=== PATIENT | male | born 1975 | race Caucasian/White ===

== ENCOUNTER 2021-01-16 07:48 | Day surgery (SDC) | payer BC, SELFPAY ==
[2021-01-10 15:08] VITALS: BMI 31.4
--- NOTE | 2021-01-15 08:59 | HO.ANESPROP2 ---
HPI - Anesthesia Eval Consult details Narrative: 46yo M for Colonoscopy PMFSH Active Problems Active Problems: All Active Problems (Updated 01/10/21 @ 15:11 by Komal Maurice) Annual physical exam (Acute) Constipation (Acute) Rectal bleeding (Acute) Overweight (BMI 25.0-29.9) (Acute) Hypercholesterolemia (Acute) Vitamin D deficiency (Acute) Hypertension (Acute) Past Medical History Medical History Bruise Environmental allergies Fatty liver Hypercholesterolemia Hypertension Overweight (BMI 25.0-29.9) Seasonal allergies Vitamin D deficiency Family History Family History Father No problems noted. Mother No problems noted. Paternal Grandmother Breast cancer Maternal Grandfather Myocardial infarction Sister No problems noted. Surgical History Surgical History H/O wisdom tooth extraction History of left knee surgery Social History Social History Alcohol intake: never Smoking Status: Never smoker Use of substances other than those prescribed or required for medical reasons: No Advance Directives: No Advance Directives Information Provided: No Advance Directives on File: No Meds Allergies Allergy/AdvReac Type Severity Reaction Status Date / Time cephalexin [Keflex] Allergy Intermediate Swelling Verified 01/16/21 08:23 hydrochlorothiazide Allergy Intermediate rash Verified 01/16/21 08:23 egg AdvReac Intermediate Gastrointestinal Verified 01/16/21 08:31 Upset Shellfish AdvReac Intermediate VOMITING Uncoded 01/16/21 08:31 Home Medications Medication Instructions Recorded Confirmed Last Taken Type cholecalciferol (vitamin D3) 250 mcg PO DAILY 01/10/21 01/10/21 Unknown History [Vitamin D3] levocetirizine [Xyzal] 5 mg PO DAILY 01/10/21 01/10/21 Unknown History multivitamin 1 tab PO DAILY 01/10/21 01/10/21 Unknown History Exam Exam Date and Time: January 15, 2021 0859 Height,Weight and Vital Signs: Height 5 ft 10 in Weight 99.337 kg Assessment and Plan Assessment Anesthesia Assessment: Chart Reviewed
[2021-01-16 08:34] VITALS: BP 156/99; PULSE 91; RESP 20; TEMP 36.9; O2SAT 98
[2021-01-16] MEDS: Lactated Ringers 1,000 ML 100 ML IVCONT (08:43)
--- NOTE | 2021-01-16 09:05 | P.CONAN_ITS ---
[facility] Active Problems Active Problems: All Active Problems (Updated 01/10/21 @ 15:11 by Komal mcdonald) Annual physical exam (Acute) Constipation (Acute) Rectal bleeding (Acute) Overweight (BMI 25.0-29.9) (Acute) Hypercholesterolemia (Acute) Vitamin D deficiency (Acute) Hypertension (Acute) Past Medical History Medical History Bruise Environmental allergies Fatty liver Hypercholesterolemia Hypertension Overweight (BMI 25.0-29.9) Seasonal allergies Vitamin D deficiency Family History Family History Father No problems noted. Mother No problems noted. Paternal Grandmother Breast cancer Maternal Grandfather Myocardial infarction Sister No problems noted. Surgical History Surgical History H/O wisdom tooth extraction History of left knee surgery Social History Social History Alcohol intake: never Smoking Status: Never smoker Use of substances other than those prescribed or required for medical reasons: No Advance Directives: No Advance Directives Information Provided: No Advance Directives on File: No Meds Allergies Allergy/AdvReac Type Severity Reaction Status Date / Time cephalexin [Keflex] Allergy Intermediate Swelling Verified 01/16/21 08:23 hydrochlorothiazide Allergy Intermediate rash Verified 01/16/21 08:23 egg AdvReac Intermediate Gastrointestinal Verified 01/16/21 08:31 Upset Shellfish AdvReac Intermediate VOMITING Uncoded 01/16/21 08:31 Active Medications: Current Medications Generic Name Dose Route Start Last Admin Trade Name Otoniel PRN Reason Stop Dose Admin Lactated Ringer's 1,000 mls @ 100 mls/hr 01/16/21 08:30 01/16/21 08:43 Lr IVCONT 100 mls/hr .Q10H MISTI Administration Home Medications Medication Instructions Recorded Confirmed Last Taken Type cholecalciferol (vitamin D3) 250 mcg PO DAILY 01/10/21 01/10/21 Unknown History [Vitamin D3] levocetirizine [Xyzal] 5 mg PO DAILY 01/10/21 01/10/21 Unknown History multivitamin 1 tab PO DAILY 01/10/21 01/10/21 Unknown History Exam Exam Date and Time: January 16, [id number] Height,Weight and Vital Signs: Height 5 ft 10 in Weight 99.337 kg Last Vital Signs Temp 98.4 F 01/16/21 08:34 Pulse 91 01/16/21 08:34 Resp 20 01/16/21 08:34 BP 156/99 H 01/16/21 08:34 Pulse Ox 98 01/16/21 08:34 Airway Mallampati Class: II TM Dist: >3cm Neck ROM: Full
--- NOTE | 2021-01-16 09:27 | MHC.SHP ---
Pre-Procedural Eval Section A The patient is an INPATIENT: No Changes since office visit: No Cold of Flu in the past 2 weeks, No New Medical Problems, No Changes in Medication and No Patient answered all questions The History & Physical has been completed within 30 days and I have reviewed it.: Yes Section B Chief Complaint: rectal bleeding Allergies: Allergies Allergy/AdvReac Type Severity Reaction Status Date / Time cephalexin [Keflex] Allergy Intermediate Swelling Verified 01/16/21 08:23 hydrochlorothiazide Allergy Intermediate rash Verified 01/16/21 08:23 egg AdvReac Intermediate Gastrointestinal Verified 01/16/21 08:31 Upset Shellfish AdvReac Intermediate VOMITING Uncoded 01/16/21 08:31 Plan I have reviewed the history and physical and performed a pertinent physical examination on my patient. No changes have occurred unless specified.
[2021-01-16 10:00] VITALS: BP 120/81; PULSE 99; RESP 14; TEMP 36.4; O2SAT 95
--- NOTE | 2021-01-16 10:04 | PM.OP ---
Brief Operative Note Date of Service: 01/16/21 Pre-op diagnosis: rectal bleeding Post-op diagnosis: same (colon polyp) Procedure: colonoscopy Surgeon: Gregory Lopez Anesthesia: MAC Estimated blood loss (mL): 0 Pathology: other (rectal polyp) Condition: stable Disposition: PACU
[2021-01-16 10:15] VITALS: BP 147/91; PULSE 82; RESP 16; O2SAT 98
--- NOTE | 2021-01-16 10:16 | OP_ITS ---
SURGEON: Gregory Lopez MD INDICATIONS: Rectal bleeding. PREOPERATIVE DIAGNOSIS: POSTOPERATIVE DIAGNOSIS: PROCEDURE PERFORMED: Colonoscopy to the terminal ileum with snare polypectomy. ESTIMATED BLOOD LOSS: COMPLICATIONS: ANESTHESIA: ASSISTANTS: SPECIMENS: MEDICATIONS: Monitored anesthesia care. DESCRIPTION OF PROCEDURE: The history and physical performed. The risks and benefits of the procedure were explained to the patient. Informed consent was obtained. The patient was placed in the left lateral decubitus position. A digital rectal exam performed and was found to be normal. The Olympus pediatric video colonoscope was introduced into the rectum and advanced to the cecum without difficulty. The cecum was identified by transillumination, palpation, and identification of ileocecal valve. Examination was performed and the scope was removed. He tolerated the procedure well and was taken to recovery area in stable condition. FINDINGS: The terminal ileum was normal. The visualized colonic mucosa was normal. The quality of the prep was fair with some limited views available in the right colon and cecum due to retained liquid stool. This was washed and suctioned as best possible. In the rectum, was a 10 mm polyp, which was removed with a snare and recovered via suction. No other polyps were identified. Retroflexed examination was normal other than the polyps. There was mild sigmoid diverticulosis. IMPRESSION: Colon polyp. RECOMMENDATION: Follow up the biopsy results. MD REMI Garcia/HILTON / [id number]
== END 2021-01-16 10:49 | disposition home or self-care (01) ==
PROVIDERS: PCP Internal Medicine; Visit Provider Internal Medicine Gastroenterology
PROC: 0DJD8ZZ Inspection of Lower Intestinal Tract, Via Natural or Artificial Opening Endoscopic (ICD-10-PCS; CPT 45378; principal; 2021-01-16 09:00)
DX: K62.5 Hemorrhage of anus and rectum (principal); D12.8 Benign neoplasm of rectum; K57.30 Diverticulosis of large intestine without perforation or abscess without bleeding; I10 Essential (primary) hypertension; E55.9 Vitamin D deficiency, unspecified; Z79.899 Other long term (current) drug therapy; Z79.82 Long term (current) use of aspirin; Z88.1 Allergy status to other antibiotic agents; Z88.8 Allergy status to other drugs, medicaments and biological substances
CPT/HCPCS: 45385; 88305

== ENCOUNTER 2022-11-16 06:57 | Outpatient (REF) | payer BC, SELFPAY ==
[2022-11-16 07:04] LABS: MANUAL DIFF FLAG NO
[2022-11-16 07:43] LABS: Basophils Percent Auto 0.6 % (0-2); Eosinophils Absolute Auto 0.3 X10*3/uL (0.0-0.4); Eosinophils Percent Auto 4.4 % (0-4); Hematocrit 44.4 % (42.0-52.0); Hemoglobin 15.4 g/dl (14.0-18.0); Imm Gran Abs Auto 0.02 X10*3/uL (0.00-0.03); Imm Gran Pct Auto 0.3 % (0.0-0.4); Lymphocytes Absolute Auto 3.3 X10*3/uL (1.2-4.9); Lymphocytes Percent Auto 45.1 % (20-40); Mean Corpuscular HGB Conc 34.7 g/dl (31.0-36.0); Mean Corpuscular Volume 86.5 fL (80.0-98.0); Mean Platelet Volume 10.3 fL (9.4-12.4); Monocytes Absolute Auto 0.6 X10*3/uL (0.1-1.2); Monocytes Percent Auto 8.1 % (2-11); Neutrophils Percent Auto 41.5 % (45-73); Platelet Count 276 X10*3/uL (160-400); Red Blood Count 5.13 X10*6/uL (4.60-5.80); Red Cell Distribution Width 11.9 % (11.0-16.0); White Blood Count 7.2 X10*3/uL (4.8-10.8)
[2022-11-16 08:29] LABS: Alanine Aminotransferase 48 U/L (0-40); Albumin Level 4.5 g/dL (3.5-5.0); Alkaline Phosphatase 72 U/L (39-117); Anion Gap 14 (12-20); Aspartate Amino Transferase 24 U/L (5-37); Bilirubin Total 0.4 mg/dL (0.0-1.0); Blood Urea Nitrogen 11 mg/dL (9-16); Calcium 10.4 mg/dL (8.4-10.2); Carbon Dioxide 26 mmol/L (22-29); Chloride 104 mmol/L (96-108); Cholesterol 195 mg/dL; Estimated Glomerular Filt Rate > 60; Free T4 (Free Thyroxine) 1.01 ng/dL (0.71-1.85); Glucose Random 98 mg/dL (60-115); HDL Cholesterol 36 mg/dL; LDL Cholesterol Calculated 117 mg/dl; Sodium 140 mmol/L (135-145); Thyroid Stimulating Hormone 1.25 uIU/mL (0.32-4.0); Total Protein 7.3 g/dL (6.5-8.0); Triglycerides 213 mg/dL
[2022-11-16 08:42] LABS: Folate 14.8 ng/mL (> or = 4.0); Vitamin B12 787 pg/mL (200-900)
== END 2022-11-16 06:58 | disposition home or self-care (01) ==
LOC: HO.LAB 06:57
PROVIDERS: PCP Internal Medicine; Visit Provider Internal Medicine
DX: E78.00 Pure hypercholesterolemia, unspecified (principal); I10 Essential (primary) hypertension
CPT/HCPCS: 36415; 80053; 80061; 82607; 82746; 84439; 84443; 85025

== ENCOUNTER 2023-06-06 14:10 | Outpatient (AMB) | payer BC, SELFPAY ==
--- NOTE | 2023-06-06 14:50 | AM.OFFWIN_ITS ---
Intake Vital Signs 06/06/23 14:52 Height 5 ft 10 in BP 128/68 Blood Pressure Location Lt brachial Position Sitting Pulse 78 Pulse Source Pulse Oximeter Temp 98.2 F Temp Source Temporal Artery Scan Pulse Oximetry (%) 97 Oxygen Delivery Method Room Air Intake Visit Reasons: EP sunburn checked out Intake Note: pt is here for c/o sunburn on legs, has yellow discharge Patient Tobacco Use Status: Never used Tobacco Allergies cephalexin [Keflex] Allergy (Intermediate, Verified 06/06/23 14:51) Swelling hydrochlorothiazide Allergy (Intermediate, Verified 06/06/23 14:51) rash egg Adverse Reaction (Intermediate, Verified 06/06/23 14:51) Gastrointestinal Upset Shellfish Adverse Reaction (Intermediate, Uncoded 11/13/22 08:58) VOMITING Do you need a note to return to daycare/school/sports/work: Yes HPI HPI Comments History of Present Illness Details This is a 48-year-old male who presents to the office today for sick visit. Patient [place] was [place] the beach [place] 9 [place] and did not wear sunscreens. Patient had a sunburn throughout most of his body. He states he has been using cool compresses, aloe vera, and lotion and his sunburn has essentially resolved. However, his left lower leg began blistering and peeling and he noticed some yellow drainage from the area. Patient started using an antibiotic ointment and covering the area with a bandage but the drainage worsened. Patient otherwise feels well and denies any fever/chills, chest pain, shortness breath, abdominal pain, or nausea/vomiting/diarrhea. [facility] Medical History (Updated 11/13/22 @ 09:17 by Mesha Leija MD) Bruise Constipation Environmental allergies Fatty liver Hypercholesterolemia Hypertension Ingrown toenail of both feet Overweight (BMI 25.0-29.9) Seasonal allergies Vitamin D deficiency Surgical History H/O wisdom tooth extraction History of left knee surgery Family History Father No problems noted. Mother No problems noted. Paternal Grandmother Breast cancer Maternal Grandfather Myocardial infarction Sister No problems noted. Social History Housing: House Alcohol intake: never Patient Tobacco Use Status: Never used Tobacco e-Cigarette/Vaping Use: Never Used Second Hand Smoke Exposure: No Current occupational status: employed Cognitive needs: No Hearing needs: No Vision needs: No Review of Systems Const Reports as per HPI, Reports no additional complaints, Denies chills and Denies fever(s) Eyes Reports no additional complaints ENT Reports no additional complaints Card Reports no additional complaints, Denies chest pain and Denies dyspnea Resp Denies dyspnea GI Reports no additional complaints Reports no additional complaints Musc Reports no additional complaints Skin/Breast Details: + drainage + blistering Reports change in pigmentation Neuro Reports no additional complaints Psych Reports no additional complaints Endo Reports no additional complaints Jim/Lymph Reports no additional complaints Aller/Immun Reports no additional complaints Physical Exam Vital Signs: Last Vital Signs Temp 98.2 F 06/06/23 14:52 Pulse 78 06/06/23 14:52 BP 128/68 06/06/23 14:52 Pulse Ox 97 06/06/23 14:52 Oxygen Delivery Method Room Air 06/06/23 14:52 Const General: cooperative and healthy appearing Orientation/consciousness: patient oriented x3 HEENT Head: Yes normal to inspection Ears: hearing grossly normal bilaterally General nose exam: Normal external nose present Face and sinus: Yes normal facial exam Mouth: Normal oral and palatal mucosa present Eyes General: appearance normal, both eyes and all related structures Resp Effort & Inspection: normal respiratory effort Auscultation: clear to auscultation bilaterally, no crackles, no rales, no rhonchi and no wheezes Cardio Rate: regular rate Rhythm: regular rhythm Heart sounds: no gallops, no murmurs and no rubs Skin Other: There is an area of bright red erythema with mild purulent drainage superimposed upon sunburn of the left anterior ankle. No fluctuation or endurance to suggest abscess or drainable collection. Neuro General: patient oriented x3 Cranial nerves: Yes CN's II-XII intact bilaterally Cognition (Neuro): normal cognition Motor exam (neuro): 5/5 motor strength present throughout Assessment & Plan Assessment & Plan (1) Cellulitis of left ankle: Code(s): L03.116 - Cellulitis of left lower limb Plan: This is a 48-year-old male presenting to the office today with increased erythema/drainage superimposed upon a sunburn. History and physical most consistent with acute cellulitis of the left ankle. Patient has no fever/chills or systemic symptoms. Started on p.o. trimethoprim sulfamethoxazole twice daily for treatment of acute cellulitis with purulent drainage. Recommended continuing local wound care with application of bacitracin and covering the area with a bandage. Patient advised to follow up here or with the emergency room and he has developed fever/chills, worsening erythema, or lymphangitic streaking. Patient verbalizes understanding and he is agreeable to plan. Medications: New sulfamethoxazole-trimethoprim 800-160 mg (Bactrim DS) 1 tab PO BID 10 tabs 0RF Coding Level of Care Code Est Pt Level 3 (42430) Diagnoses Cellulitis of left ankle L03.116
[2023-06-06 14:52] VITALS: BP 128/68; PULSE 78; TEMP 36.8; O2SAT 97
== END 2023-06-06 15:26 | disposition home or self-care (01) ==
PROVIDERS: PCP Internal Medicine; Visit Provider Physician Assistant Medical
DX: L03.116 Cellulitis of left lower limb (principal)
CPT/HCPCS: 99213

== ENCOUNTER 2023-06-16 09:29 | Outpatient (AMB) | payer BC, SELFPAY ==
--- NOTE | 2023-06-16 10:37 | AM.OFFWIN_ITS ---
Intake Vital Signs 06/16/23 10:39 Height 5 ft 10 in BP 118/40 L Blood Pressure Location Lt brachial Position Sitting Pulse 77 Pulse Source Pulse Oximeter Temp 96.7 F L Temp Source Temporal Artery Scan Pulse Oximetry (%) 98 Oxygen Delivery Method Room Air Intake Visit Reasons: EP, Lt ankle pain Intake Note: Pt is here c/o left ankle pain. Pt states no falls or injuries. Patient Tobacco Use Status: Never used Tobacco Allergies cephalexin [Keflex] Allergy (Intermediate, Verified 06/16/23 10:39) Swelling hydrochlorothiazide Allergy (Intermediate, Verified 06/16/23 10:39) rash egg Adverse Reaction (Intermediate, Verified 06/16/23 10:39) Gastrointestinal Upset Shellfish Adverse Reaction (Intermediate, Uncoded 06/16/23 10:39) VOMITING Do you need a note to return to daycare/school/sports/work: No HPI EP, Lt ankle pain HPI Details 48-year-old male presents to the office for a sick visit. Patient had a sunburn on the left foot a week ago. Subsequently got infected and was treated with 5 days of antibiotics. The wound was healing but in the last 2 days patient feels the recurrence of pain and discomfort. [facility] Medical History (Updated 06/16/23 @ 11:03 by Edgardo Mccallum MD) Bruise Constipation Environmental allergies Fatty liver Hypercholesterolemia Hypertension Ingrown toenail of both feet Overweight (BMI 25.0-29.9) Seasonal allergies Vitamin D deficiency Surgical History H/O wisdom tooth extraction History of left knee surgery Family History Father No problems noted. Mother No problems noted. Paternal Grandmother Breast cancer Maternal Grandfather Myocardial infarction Sister No problems noted. Social History Housing: House Alcohol intake: never Patient Tobacco Use Status: Never used Tobacco e-Cigarette/Vaping Use: Never Used Second Hand Smoke Exposure: No Current occupational status: employed Cognitive needs: No Hearing needs: No Vision needs: No Physical Exam Vital Signs: Last Vital Signs Temp 96.7 F L 06/16/23 10:39 Pulse 77 06/16/23 10:39 BP 118/40 L 06/16/23 10:39 Pulse Ox 98 06/16/23 10:39 Oxygen Delivery Method Room Air 06/16/23 10:39 Extrem Other: Left leg: Ankle: Open wound with peeling skin, pink granulation tissue. Assessment & Plan Assessment & Plan (1) Cellulitis of leg: Code(s): L03.119 - Cellulitis of unspecified part of limb Plan: Additional antibiotics prescribed. If symptoms do not improve to follow-up here. Medications: Changed From sulfamethoxazole-trimethoprim 800-160 mg (Bactrim DS) 1 tab PO BID 10 tabs 0RF To sulfamethoxazole-trimethoprim 800-160 mg (Bactrim DS) 1 tab PO BID 7 days 14 tabs 0RF Coding Level of Care Code Est Pt Level 3 (66449) Diagnoses Cellulitis of leg L03.119
[2023-06-16 10:39] VITALS: BP 118/40; PULSE 77; TEMP 35.9; O2SAT 98
== END 2023-06-16 11:12 | disposition home or self-care (01) ==
PROVIDERS: PCP Internal Medicine; Visit Provider Internal Medicine
DX: L03.119 Cellulitis of unspecified part of limb (principal)
CPT/HCPCS: 99213

== ENCOUNTER 2023-07-25 08:20 | Outpatient (AMB) | payer BC, SELFPAY ==
--- NOTE | 2023-07-25 08:25 | AM.OFFWIN_ITS ---
Intake Vital Signs 07/25/23 08:26 Weight 216 lb BP 122/90 H Blood Pressure Location Lt brachial Position Sitting Pulse 82 Pulse Source Pulse Oximeter Temp 97.5 F Temp Source Temporal Artery Scan Pulse Oximetry (%) 97 Oxygen Delivery Method Room Air Intake Visit Reasons: EP, left ankle rash, cellulitis? Intake Note: Patient here for possible cellulitis on left ankle. Patient Tobacco Use Status: Never used Tobacco Allergies cephalexin [Keflex] Allergy (Intermediate, Verified 07/25/23 08:40) Swelling hydrochlorothiazide Allergy (Intermediate, Verified 07/25/23 08:40) rash egg Adverse Reaction (Intermediate, Verified 07/25/23 08:40) Gastrointestinal Upset Shellfish Adverse Reaction (Intermediate, Uncoded 07/25/23 08:40) VOMITING Do you need a note to return to daycare/school/sports/work: No HPI EP, left ankle rash, cellulitis? HPI Details 48-year-old male presents to the office for a sick visit. Patient has been taking antibiotics for a bad skin rash in the past month. This happened after he had a bad sun exposure. He has taken 2 rounds of antibiotics and noticed a small redness in the left ankle area. [facility] Medical History (Updated 06/16/23 @ 11:03 by Edgardo Mccallum MD) Bruise Constipation Environmental allergies Fatty liver Hypercholesterolemia Hypertension Ingrown toenail of both feet Overweight (BMI 25.0-29.9) Seasonal allergies Vitamin D deficiency Surgical History H/O wisdom tooth extraction History of left knee surgery Family History Father No problems noted. Mother No problems noted. Paternal Grandmother Breast cancer Maternal Grandfather Myocardial infarction Sister No problems noted. Social History Housing: House Alcohol intake: never Patient Tobacco Use Status: Never used Tobacco e-Cigarette/Vaping Use: Never Used Second Hand Smoke Exposure: No Current occupational status: employed Cognitive needs: No Hearing needs: No Vision needs: No Physical Exam Vital Signs: Last Vital Signs Temp 97.5 F 07/25/23 08:26 Pulse 82 07/25/23 08:26 BP 122/90 H 07/25/23 08:26 Pulse Ox 97 07/25/23 08:26 Oxygen Delivery Method Room Air 07/25/23 08:26 Skin Other: Erythematous area over the left ankle. Healthy granulation tissue. No discharge. Assessment & Plan Assessment & Plan (1) Cellulitis of leg: Code(s): L03.119 - Cellulitis of unspecified part of limb Plan: Rashes slowly healing. No evidence of infection. Reassurance. No antibiotics necessary. Coding Level of Care Code Est Pt Level 3 (12432) Diagnoses Cellulitis of leg L03.119
[2023-07-25 08:26] VITALS: BP 122/90; PULSE 82; TEMP 36.4; O2SAT 97
== END 2023-07-25 09:14 | disposition home or self-care (01) ==
PROVIDERS: PCP Internal Medicine; Visit Provider Internal Medicine
DX: L03.119 Cellulitis of unspecified part of limb (principal)
CPT/HCPCS: 99213

== ENCOUNTER 2023-11-25 08:49 | Outpatient (AMB) | payer BC, SELFPAY ==
[2023-11-25 08:51] VITALS: BP 130/84; PULSE 82; O2SAT 97; BMI 33.1
--- NOTE | 2023-11-25 08:51 | A.OFFPC_ITS ---
Vital Signs 11/25/23 08:51 Height 5 ft 10 in Weight 231 lb BMI 33.1 BP 130/84 Blood Pressure Location Lt brachial Position Sitting Pulse 82 Pulse Source Pulse Oximeter Pulse Oximetry (%) 97 Oxygen Delivery Method Room Air Intake Visit Reasons: Annual Exam Health And Safety Representative Required: No Allergies cephalexin [Keflex] Allergy (Intermediate, Verified 11/25/23 08:51) Swelling hydrochlorothiazide Allergy (Intermediate, Verified 11/25/23 08:51) rash egg Adverse Reaction (Intermediate, Verified 11/25/23 08:51) Gastrointestinal Upset Shellfish Adverse Reaction (Intermediate, Uncoded 11/25/23 08:51) VOMITING Medication List - Last Reconciled 11/25/23 by Mesha Leija MD [Blood pressure monitor As directed] cholecalciferol (vitamin D3) (Vitamin D3) 250 mcg PO DAILY levocetirizine (Xyzal) 5 mg PO DAILY lisinopril 10 mg PO DAILY multivitamin 1 tab PO DAILY Tobacco use date assessed: 11/25/23 Dental Screening Dental Screen Date: 11/25/23 Did you have a dental visit in the last 12 months?: Yes Did you have a dental problem in the last 6 months where you did not have access to dental care?: No Was dental information given to patient?: Patient has dentist HPI Annual Exam HPI Details 48-year-old obese male with hypertension hypercholesterolemia coming in for physical. Last seen October 2022. Patient's colonoscopy is up-to-date December 2020. Noted urgent care notes of left ankle rash and infection [facility] Medical History (Updated 11/25/23 @ 08:59 by Mesha Leija MD) Ingrown toenail of both feet Bruise Environmental allergies Seasonal allergies Constipation Overweight (BMI 25.0-29.9) Fatty liver Hypercholesterolemia Vitamin D deficiency Hypertension Surgical History H/O wisdom tooth extraction History of left knee surgery Family History Father No problems noted. Mother No problems noted. Paternal Grandmother Breast cancer Maternal Grandfather Myocardial infarction Sister No problems noted. Social History (Updated 11/25/23 @ 09:03 by Mesha Leija MD) Housing: House Alcohol intake: current Comment: 1 Q 6 months 1-2 beers Patient Tobacco Use Status: Never used Tobacco e-Cigarette/Vaping Use: Never Used Second Hand Smoke Exposure: No Current occupational status: employed Cognitive needs: No Hearing needs: No Vision needs: No Questionnaire PHQ-9 Over the last 2 weeks, how often have you been bothered by any of the following problems? 1. Little interest or pleasure in doing things: not at all 2. Feeling down, depressed, or hopeless: not at all 3. Trouble falling or staying asleep, or sleeping too much: not at all 4. Feeling tired or having little energy: not at all 5. Poor appetite or overeating: not at all 6. Feeling bad about yourself - or that you are a failure or have let yourself or your family down: not at all 7. Trouble concentrating on things, such as reading the newspaper or watching television: not at all 8. Moving or speaking so slowly that other people could have noticed. Or the opposite - being so fidgety or restless that you have been moving around a lot more than usual: not at all 9. Thoughts that you would be better off or of hurting yourself in some way: not at all Total score: 0 Depression Screening Interpretation: Negative Depression Screening Done: Yes Source: Developed by Drs. Isaac Camejo, Amarilys Ruiz, Ramon Ty and colleagues, with an educational bobby from [employer]. Thrive Questionnaire Date Thrive assessed: 11/13/22 AUDIT C Alcohol Use Questionnaire (AUDIT-C) 1. How often do you have a drink containing alcohol?: Monthly or less 2. How many drinks containing alcohol do you have on a typical day when you are drinking?: 1 or 2 (0) 3. How often do you have six or more drinks on one occasion?: Never Total Score: 1 YONG-7 AMB Questionnaire YONG-7 Date YONG - 7 assessed: 11/25/23 Feeling nervous, anxious, or on edge: 0 = Not at all Not being able to stop or control worryin = Not at all Worrying too much about different things: 0 = Not at all Trouble relaxin = Not at all Being so restless that it is hard to sit still: 0 = Not at all Becoming easily annoyed or irritable: 0 = Not at all Feeling afraid as if something awful might happen: 0 = Not at all Total YONG-7 score (0-4 normal; 5-9 mild; 10-14 moderate; 15-21 severe): 0 Source: Developed by Drs. Isaac Camejo, Amarilys Ruiz, Ramon Ty and colleagues, with an educational bobby from [employer]. Review of Systems Const Denies poor appetite and Denies weakness Eyes Denies no additional complaints ENT Reports Normal hearing present, Denies dizziness, Denies nasal congestion, Denies tinnitus and Denies sore throat Card Denies chest pain, Denies syncope, Denies rapid heart rate and Denies dyspnea Resp Denies cough and Denies dyspnea GI Denies change in stool character, Reports constipation, Denies diarrhea, Denies nausea and Denies vomiting Denies dysuria and Denies urinary frequency Neuro Reports Normal hearing present, Denies confusion, Denies dizziness, Denies syncope and Denies weakness Psych Denies confusion Physical exam (Primary Care) Vital Signs: Last Vital Signs Pulse 82 11/25/23 08:51 BP 130/84 11/25/23 08:51 Pulse Ox 97 11/25/23 08:51 Oxygen Delivery Method Room Air 11/25/23 08:51 BMI result Body Mass Index 33.1 Tobacco/Smoking Status: Tobacco use Status Tobacco use date assessed 11/25/23 11/25/23 08:56 Patient Tobacco Use Status Never used Tobacco 11/25/23 08:56 e-Cigarette/Vaping Use Never Used 11/25/23 08:56 PHQ-9: PHQ-9 Score PHQ-9: Total score 0 11/25/23 08:56 Depression Screening Interpretation: Negative Thrive Assessment: Date of Thrive Assessment Date Thrive assessed 11/13/22 11/25/23 08:56 Const General: alert and awake; No confusion Orientation/consciousness: No confusion HENMT Head: Yes normocephalic Ears: external ears normal and TM's normal bilaterally Face and sinus: Yes normal facial exam Mouth: moist mucous membranes Throat: Yes tonsils normal Eyes Conjunctivae: conjunctivae normal Pupils: Equal, round and reactive pupils present and Pupil accommodation reflex normal Direct Ophthalmoscopy: normal light reflex Neck Neck: No lymphadenopathy Thyroid: Thyroid normal Chest Chest palpation & inspection: normal inspection of the chest Resp Effort & Inspection: normal respiratory effort and no audible wheezes Auscultation: clear to auscultation bilaterally, no crackles, no wheezes and lung sounds not diminished Cardio Rate: regular rate Rhythm: regular rhythm Peripheral pulses: radial pulses present and dorsalis pedis present GI Palpation (GI): no masses Auscultation: normal bowel sounds and normoactive bowel sounds Rectal Exam - Male: Yes deferred Male General Exam: Yes normal external exam Skin General skin exam: no rashes or lesions noted Rashes: no rashes Neuro General: deep tendon reflexes 2+ bilaterally and No confusion Cranial nerves: Yes Equal, round and reactive pupils present, Yes Midline tongue present, Yes Normal hearing present and Yes Ability to bilaterally elevate shoulders present Cognition (Neuro): normal cognition Gait exam (Neuro): Normal gait present Motor exam (neuro): 5/5 motor strength present throughout Deep tendon reflexes (DTR's): Right brachioradialis reflex intensity grade: 2+, Left brachioradialis reflex intensity grade: 2+, Right patellar reflex intensity grade: 2+ and Left patellar reflex intensity grade: 2+ Extrem Other: mild redness on the L leg4 by 3 inch - mild General: No edema Assessment and Plan Assessment & Plan (1) Annual physical exam: Code(s): Z00.00 - Encounter for general adult medical examination without abnormal findings (2) Obesity (BMI 30.0-34.9): Code(s): E66.9 - Obesity, unspecified Plan: Diet and exercise (3) Hypercholesterolemia: Code(s): E78.00 - Pure hypercholesterolemia, unspecified Plan: Avoid fried foods, chicken skin, eggs, butter margarine, pastries and meat. Be it pork or beef they have a lot of cholesterol LDL goal of less than 130 and triglyceride of less than 1 for (4) Hypertension: Code(s): I10 - Essential (primary) hypertension Qualifiers: Hypertension type: essential hypertension Qualified Code(s): I10 - Essential (primary) hypertension Plan: Continue with blood pressure medication. Decrease salt intake and exercise presently on lisinopril 10 mg once a day (5) Fatty liver: Code(s): K76.0 - Fatty (change of) liver, not elsewhere classified Plan: Low-fat diet and exercise Orders: Orders Lipid Panel Today E78.00 - Pure hypercholesterolemia, unspecified, I10 - Essential (primary) hypertension Vitamin B12 and Folate Today I10 - Essential (primary) hypertension Complete Blood Count Auto Diff Today I10 - Essential (primary) hypertension Comprehensive Met. Panel Today I10 - Essential (primary) hypertension Thyroid Stimulating Hormone Today I10 - Essential (primary) hypertension Free T4 (Free Thyroxine) Today I10 - Essential (primary) hypertension Coding Level of Care Code Est Pt Prev Care 40-64y(95981) Diagnoses Annual physical exam Z00.00 Obesity (BMI 30.0-34.9) E66.9 Hypercholesterolemia E78.00 Essential hypertension I10 Hypertension type: essential hypertension Fatty liver K76.0
== END 2023-11-25 09:20 | disposition home or self-care (01) ==
PROVIDERS: Visit Provider Internal Medicine
DX: Z00.00 Encounter for general adult medical examination without abnormal findings (principal); I10 Essential (primary) hypertension; E66.9 Obesity, unspecified; Z68.33 Body mass index [BMI] 33.0-33.9, adult
CPT/HCPCS: 99396

== ENCOUNTER 2024-08-09 08:11 | Outpatient (AMB) | payer BC, SELFPAY ==
[2024-08-09 08:15] VITALS: BP 122/84; PULSE 77; TEMP 36.8; O2SAT 97; BMI 35.0
--- NOTE | 2024-08-09 08:15 | MHC.OFFWIV ---
Intake Vital Signs 08/09/24 08:15 Height 5 ft 10 in Weight 244 lb BMI 35.0 BP 122/84 Blood Pressure Location Lt brachial Position Sitting Pulse 77 Pulse Source Pulse Oximeter Temp 98.3 F Temp Source Oral Pulse Oximetry (%) 97 Oxygen Delivery Method Room Air Intake Visit Reasons: EP-skin rash Intake Note: pt c/o rash LT wrist, several other spots. Started a few months ago Patient Tobacco Use Status: Never used Tobacco Allergies cephalexin [Keflex] Allergy (Intermediate, Verified 08/09/24 08:22) Swelling hydrochlorothiazide Allergy (Intermediate, Verified 08/09/24 08:22) rash egg Adverse Reaction (Intermediate, Verified 08/09/24 08:22) Gastrointestinal Upset Shellfish Adverse Reaction (Intermediate, Uncoded 08/09/24 08:22) VOMITING Do you need a note to return to daycare/school/sports/work: Yes HPI HPI Comments History of Present Illness Details Patient is a 49-year-old male complaining of an itchy rash on his bilateral wrists and his upper back that has been present for quite a few weeks. He states it is now showed up on his forehead so that is what made him come in this morning. He states it is extremely itchy, especially at night and it seems to be spreading. He thinks it maybe eczema. He did admit to working in his yard and pulling weeds a few weeks ago right before all this started. He denies any fevers [facility] Medical History (Updated 08/09/24 @ 08:54 by Vani Hopkins PA-C) Ingrown toenail of both feet Bruise Environmental allergies Seasonal allergies Constipation Overweight (BMI 25.0-29.9) Fatty liver Hypercholesterolemia Vitamin D deficiency Hypertension Surgical History H/O wisdom tooth extraction History of left knee surgery Family History Father No problems noted. Mother No problems noted. Paternal Grandmother Breast cancer Maternal Grandfather Myocardial infarction Sister No problems noted. Social History (Updated 11/25/23 @ 09:03 by Mesha Leija MD) Housing: House Alcohol intake: current Comment: 1 Q 6 months 1-2 beers Patient Tobacco Use Status: Never used Tobacco e-Cigarette/Vaping Use: Never Used Second Hand Smoke Exposure: No Current occupational status: employed Cognitive needs: No Hearing needs: No Vision needs: No Review of Systems Const All systems reviewed & are unremarkable except as noted in HPI and below Physical Exam Vital Signs: Last Vital Signs Temp 98.3 F 08/09/24 08:15 Pulse 77 08/09/24 08:15 BP 122/84 08/09/24 08:15 Pulse Ox 97 08/09/24 08:15 Oxygen Delivery Method Room Air 08/09/24 08:15 BMI result Body Mass Index 35.0 Const General: cooperative, healthy appearing, comfortable and no acute distress Orientation/consciousness: patient oriented x3 Limitations: no limitations HEENT Head: Yes normal to inspection Eyes General: appearance normal, both eyes and all related structures Resp Effort & Inspection: normal respiratory effort and able to speak in complete sentences Skin Other: A streaky, linear maculopapular rash with crusted lesions on bilateral wrists and upper back has three 2cm areas. Neuro General: patient oriented x3 Assessment & Plan Assessment & Plan (1) Allergic dermatitis: Code(s): L23.9 - Allergic contact dermatitis, unspecified cause Plan: Prescribe clobetasol as it is a relatively small area, recommended not using on hands face or genitals and washing hands after applying the cream. If no improvement, follow up with your PCP or return to this clinic. Plan see above Medications: New clobetasol 0.05% Do not use on hands face or genitals. Please wash your hands after applying this medication or use gloves 1 appl topical BID 1 week 30 grams 0RF hydroxyzine HCl 25 mg PO BID PRN 7 tabs 0RF itching Coding Level of Care Code Est Pt Level 3 (54511) Diagnoses Allergic dermatitis L23.9
== END 2024-08-09 09:00 | disposition home or self-care (01) ==
PROVIDERS: PCP Internal Medicine; Visit Provider Physician Assistant
DX: L23.9 Allergic contact dermatitis, unspecified cause (principal)

== ENCOUNTER → 2024-08-09 08:11 | Outpatient (BNVA) | payer BC, SELFPAY | PROVIDERS: PCP Internal Medicine; Visit Provider Internal Medicine | DX: L23.9 Allergic contact dermatitis, unspecified cause (principal) ==

== ENCOUNTER 2024-11-12 06:44 | Outpatient (REF) | payer BC, SELFPAY ==
[2024-11-12 06:59] LABS: MANUAL DIFF FLAG NO
[2024-11-12 07:08] LABS: Basophils Absolute Auto 0.1 X10*3/uL (0.0-0.2); Basophils Percent Auto 0.8 % (0-2); Eosinophils Absolute Auto 0.3 X10*3/uL (0.0-0.4); Eosinophils Percent Auto 3.2 % (0-4); Hematocrit 42.5 % (42.0-52.0); Hemoglobin 15.2 g/dl (14.0-18.0); Imm Gran Abs Auto 0.07 X10*3/uL (0.00-0.03); Imm Gran Pct Auto 0.9 % (0.0-0.4); Lymphocytes Absolute Auto 3.1 X10*3/uL (1.2-4.9); Lymphocytes Percent Auto 40.2 % (20-40); Mean Corpuscular HGB Conc 35.8 g/dl (31.0-36.0); Mean Corpuscular Hemoglobin 30.3 pg (27.0-33.0); Mean Corpuscular Volume 84.7 fL (80.0-98.0); Mean Platelet Volume 9.8 fL (9.4-12.4); Monocytes Absolute Auto 0.5 X10*3/uL (0.1-1.2); Monocytes Percent Auto 6.8 % (2-11); Neutrophils Absolute Auto 3.8 x10*3/uL (2.0-8.3); Neutrophils Percent Auto 48.1 % (45-73); Platelet Count 296 X10*3/uL (160-400); Red Blood Count 5.02 X10*6/uL (4.60-5.80); Red Cell Distribution Width 11.7 % (11.0-16.0); White Blood Count 7.8 X10*3/uL (4.8-10.8)
[2024-11-12 07:45] LABS: Alanine Aminotransferase 85 U/L (0-40); Albumin Level 4.3 g/dL (3.5-5.0); Alkaline Phosphatase 66 U/L (39-117); Anion Gap 12 (12-20); Aspartate Amino Transferase 45 U/L (5-37); Bilirubin Total 0.4 mg/dL (0.0-1.0); Blood Urea Nitrogen 14 mg/dL (9-16); Calcium 9.1 mg/dL (8.4-10.2); Carbon Dioxide 25 mmol/L (22-29); Chloride 105 mmol/L (96-108); Cholesterol 233 mg/dL (<200); Estimated Glomerular Filt Rate > 60; Glucose Random 144 mg/dL (60-115); HDL Cholesterol 39 mg/dL (>40); Potassium 3.8 mmol/L (3.3-5.1); Sodium 138 mmol/L (135-145); Total Protein 7.6 g/dL (6.5-8.0); Triglycerides 418 mg/dL (<150)
[2024-11-12 07:57] LABS: Free T4 (Free Thyroxine) 0.98 ng/dL (0.71-1.85); Thyroid Stimulating Hormone 1.12 uIU/mL (0.32-4.0)
[2024-11-12 08:01] LABS: Folate 13.2 ng/mL (> or = 4.0); Vitamin B12 778 pg/mL (200-900)
== END 2024-11-12 06:45 | disposition home or self-care (01) ==
LOC: HO.LAB 06:44
PROVIDERS: PCP Internal Medicine; Visit Provider Internal Medicine
DX: I10 Essential (primary) hypertension (principal); E78.00 Pure hypercholesterolemia, unspecified
CPT/HCPCS: 36415; 80053; 80061; 82607; 82746; 84439; 84443; 85025

== ENCOUNTER 2024-11-30 08:58 | Outpatient (AMB) | payer BC, SELFPAY ==
[2024-11-30 09:03] VITALS: BP 134/80; PULSE 88; O2SAT 98; BMI 34.4
--- NOTE | 2024-11-30 09:03 | MHC.PC.OV ---
Vital Signs 11/30/24 09:03 Height 5 ft 10 in Weight 240 lb BMI 34.4 BP 134/80 Blood Pressure Location Lt brachial Position Sitting Pulse 88 Pulse Source Pulse Oximeter Pulse Oximetry (%) 98 Oxygen Delivery Method Room Air Intake Visit Reasons: Annual Exam Allergies cephalexin [Keflex] Allergy (Intermediate, Verified 11/30/24 09:04) Swelling hydrochlorothiazide Allergy (Intermediate, Verified 11/30/24 09:04) rash egg Adverse Reaction (Intermediate, Verified 11/30/24 09:04) Gastrointestinal Upset Shellfish Adverse Reaction (Intermediate, Uncoded 11/30/24 09:04) VOMITING Medication List - Last Reconciled 11/30/24 by Mesha Leija MD [Blood pressure monitor As directed] cholecalciferol (vitamin D3) (Vitamin D3) 250 mcg PO DAILY clobetasol 0.05% 1 appl topical BID 1 week hydroxyzine HCl 25 mg PO BID PRN levocetirizine (Xyzal) 5 mg PO DAILY lisinopril 10 mg PO DAILY multivitamin 1 tab PO DAILY [id number] 333-1.7 mg (Airborne (ascorbate sodium)) tabs PO Tobacco use date assessed: 11/30/24 Dental Screening Dental Screen Date: 11/30/24 Did you have a dental visit in the last 12 months?: Yes Did you have a dental problem in the last 6 months where you did not have access to dental care?: No Was dental information given to patient?: Patient has dentist HPI Annual Exam HPI Details The patient is a 49-year-old male presenting with a follow-up appointment for chronic conditions, specifically focusing on hypertension, diabetes, and hyperlipidemia. The patient has an established history of essential hypertension, with previously recorded blood pressure readings of 180/98 mmHg. He has recently been prescribed amlodipine to assist with blood pressure control. There are no reported complications such as dizziness or syncope. His blood pressure remains above target, necessitating ongoing monitoring and medication management. The patient also presents with new onset Type 2 Diabetes Mellitus. His recent fasting blood glucose was noted to be 144 mg/dL, and a Hemoglobin A1c measured at 6.8% confirms a diagnosis of diabetes. He reports dietary changes are needed due to a high intake of sugary and carbohydrate-rich foods. The patient also acknowledges a family history of diabetes affecting his mother and sister. His hyperlipidemia has shown recent worsening, with total cholesterol levels at 233 mg/dL and triglycerides significantly elevated at 418 mg/dL. Dietary indiscretions likely contributed to this elevation, with the patient admitting to frequent consumption of high-fat foods during the holiday period. He has a known history of fatty liver disease, which has been persistent with current liver enzyme levels elevated at ALT 45 U/L and AST 85 U/L. Additionally, he has a history of tubular adenoma, with a recommended follow-up colonoscopy due in 2025. The patient also suffers from seasonal allergic rhinitis, currently controlled with Cetirizine, and occasional dermatitis, for which he intermittently uses a steroid cream. - Lifestyle coaching on dietary modifications emphasizing a reduction in high-carbohydrate and high-fat foods. - Encouragement to maintain regular exercise to assist in weight management and metabolic control. - Advisement on the importance of blood glucose monitoring and diabetic dietary management. - Consideration of pneumonia vaccination due to increased risk associated with diabetes. - Scheduled repeat fasting lipid panel and liver function tests in three months. - Annual ophthalmology visit advised due to diabetic status. - No current alcohol intake, abstinent for the past five years. - Denies tobacco use and any recreational drug use. - Consumes processed, high-fat, and high-sugar foods regularly, with a recent increase in takeout meals noted. - Regularly engages in hiking when weather permits and reports no activity limitations. - Cardiovascular: Denies chest pain, shortness of breath with exertion. - Gastrointestinal: Denies nausea, vomiting, blood in stools; regular bowel movements. - Genitourinary: No dysuria or increased frequency; occasionally wakes once at night to urinate. - Neurological: Denies dizziness, syncope, peripheral neuropathy symptoms. - Musculoskeletal: Denies joint pain or swelling. - Dermatological: Reports dermatitis, particularly with painful bumps and potential blistering on fingers but resolved with topical steroid use. - Labs: Fasting Blood Glucose: 144 mg/dL; Hemoglobin A1c: 6.8%; Total Cholesterol: 233 mg/dL; Triglycerides: 418 mg/dL; ALT: 45 U/L, AST: 85 U/L. [facility] Medical History (Updated 11/30/24 @ 09:49 by Mesha Leija MD) Overweight (BMI 25.0-29.9) Obesity (BMI 30.0-34.9) Ingrown toenail of both feet Bruise Environmental allergies Seasonal allergies Constipation Fatty liver Hypercholesterolemia Vitamin D deficiency Hypertension Surgical History H/O wisdom tooth extraction History of left knee surgery Family History (Updated 11/30/24 @ 09:04 by Ludivina Tenorio CMA) Father No problems noted. Mother No problems noted. Paternal Grandmother Breast cancer Maternal Grandfather Myocardial infarction Sister No problems noted. Social History (Updated 11/30/24 @ 09:31 by Mesah Leija MD) Housing: House Alcohol intake: current Comment: stopped 2019 Patient Tobacco Use Status: Never used Tobacco Tobacco use type: Cigarette e-Cigarette/Vaping Use: Never Used Second Hand Smoke Exposure: No Current occupational status: employed Cognitive needs: No Hearing needs: No Vision needs: No Questionnaire PHQ-9 Over the last 2 weeks, how often have you been bothered by any of the following problems? 1. Little interest or pleasure in doing things: not at all 2. Feeling down, depressed, or hopeless: not at all 3. Trouble falling or staying asleep, or sleeping too much: not at all 4. Feeling tired or having little energy: not at all 5. Poor appetite or overeating: not at all 6. Feeling bad about yourself - or that you are a failure or have let yourself or your family down: not at all 7. Trouble concentrating on things, such as reading the newspaper or watching television: not at all 8. Moving or speaking so slowly that other people could have noticed. Or the opposite - being so fidgety or restless that you have been moving around a lot more than usual: not at all 9. Thoughts that you would be better off or of hurting yourself in some way: not at all Total score: 0 Depression Screening Interpretation: Negative Depression Screening Done: Yes Source: Developed by Drs. Isaac Camejo, Amarilys Ruiz, Ramon Ty and colleagues, with an educational bobby from [employer]. Thrive Questionnaire Date Thrive assessed: 11/24/24 I am a: Patient What is your living situation today?: I choose not to answer this question Within the past 12 months, did the food you bought not last and you didn't have the money to get more?: I choose not to answer this question Within the past 12 months, did you worry whether your food would run out before you got money to buy more?: I choose not to answer this question Do you have trouble paying for medicines?: I choose not to answer this question Do you have trouble getting transportation to medical appointments?: I choose not to answer this question Do you have trouble paying your heating and electricity bill?: I choose not to answer this question Do you have trouble taking care of your child, family member or friend?: I choose not to answer this question Do you have trouble with day-to-day activities such as bathing, preparing meals, shopping, managing finances, etc.?: I choose not to answer this question Are you currently unemployed and looking for a job?: I choose not to answer this question Are you interested in more education?: I choose not to answer this question Please select the resources that you would like help with: None Currently or been in a relationship where the following occur: I choose not to answer THRIVE Score: 0 AUDIT C Alcohol Use Questionnaire (AUDIT-C) 1. How often do you have a drink containing alcohol?: Never 2. How many drinks containing alcohol do you have on a typical day when you are drinking?: 1 or 2 3. How often do you have six or more drinks on one occasion?: Never Total Score: 0 YONG-7 AMB Questionnaire YONG-7 Date YONG - 7 assessed: 11/30/24 Feeling nervous, anxious, or on edge: 0 = Not at all Not being able to stop or control worryin = Not at all Worrying too much about different things: 0 = Not at all Trouble relaxin = Not at all Being so restless that it is hard to sit still: 0 = Not at all Becoming easily annoyed or irritable: 0 = Not at all Feeling afraid as if something awful might happen: 0 = Not at all Total YONG-7 score (0-4 normal; 5-9 mild; 10-14 moderate; 15-21 severe): 0 Source: Developed by Drs. Isaac Camejo, Amarilys Ruiz, Ramon Ty and colleagues, with an educational bobby from [employer]. Review of Systems Const Denies poor appetite and Denies weakness Eyes Denies no additional complaints ENT Reports Normal hearing present, Denies dizziness, Denies nasal congestion, Denies tinnitus and Denies sore throat Card Denies chest pain, Denies syncope, Denies rapid heart rate and Denies dyspnea Resp Denies cough and Denies dyspnea GI Denies change in stool character, Reports constipation, Denies diarrhea, Denies nausea and Denies vomiting Denies dysuria and Denies urinary frequency Neuro Reports Normal hearing present, Denies confusion, Denies dizziness, Denies syncope and Denies weakness Psych Denies confusion Physical exam (Primary Care) Vital Signs: Last Vital Signs Pulse 88 11/30/24 09:03 BP 134/80 11/30/24 09:03 Pulse Ox 98 11/30/24 09:03 Oxygen Delivery Method Room Air 11/30/24 09:03 Care Plan Goal for BP management: decline rectal exam BMI result Body Mass Index 34.4 Tobacco/Smoking Status: Tobacco use Status Tobacco use date assessed 11/30/24 11/30/24 09:09 Patient Tobacco Use Status Never used Tobacco 11/30/24 09:31 Tobacco use type Cigarette 11/30/24 09:31 e-Cigarette/Vaping Use Never Used 11/30/24 09:31 PHQ-9: PHQ-9 Score PHQ-9: Total score 0 11/30/24 09:41 Depression Screening Interpretation: Negative Thrive Assessment: Date of Thrive Assessment Date Thrive assessed 11/24/24 11/30/24 09:09 Currently or been in a relationship where the following occur: I choose not to answer Const General: No confusion Orientation/consciousness: No confusion HENMT Head: Yes normocephalic Ears: external ears normal and TM's normal bilaterally Face and sinus: Yes normal facial exam Mouth: moist mucous membranes Throat: Yes tonsils normal Eyes Conjunctivae: conjunctivae normal Pupils: Equal, round and reactive pupils present and Pupil accommodation reflex normal Direct Ophthalmoscopy: normal light reflex Neck Neck: No lymphadenopathy Thyroid: Thyroid normal Chest Chest palpation & inspection: normal inspection of the chest Resp Effort & Inspection: normal respiratory effort and no audible wheezes Auscultation: clear to auscultation bilaterally, no crackles, no wheezes and lung sounds not diminished Cardio Rate: regular rate Rhythm: regular rhythm Peripheral pulses: radial pulses present and dorsalis pedis present GI Palpation (GI): no masses Auscultation: normal bowel sounds and normoactive bowel sounds Rectal Exam - Male: Yes deferred Male General Exam: Yes normal external exam Skin General skin exam: no rashes or lesions noted Rashes: no rashes Neuro General: No confusion Cranial nerves: Yes Equal, round and reactive pupils present and Yes Normal hearing present Cognition (Neuro): normal cognition Gait exam (Neuro): Normal gait present Motor exam (neuro): 5/5 motor strength present throughout Deep tendon reflexes (DTR's): Right brachioradialis reflex intensity grade: 2+, Left brachioradialis reflex intensity grade: 2+, Right patellar reflex intensity grade: 2+ and Left patellar reflex intensity grade: 2+ Extrem General: No edema Results AMB Hemoglobin A1c AMB Hemoglobin A1c 6.8 % Last Edit by Ludivina Tenorio CMA on 11/30/24 09:42 Results Reviewed Results Reviewed: Laboratory Last Values Hgb A1c (Clinic) 6.8 % (4.0-6.0) H 11/30/24 09:41 Coding Level of Care Code Est Pt Prev Care 40-64y(21920) Diagnoses Annual physical exam Z00.00 Obesity (BMI 30-39.9) E66.9 Elevated blood sugar R73.9 Hypercholesterolemia E78.00 Essential hypertension I10 Hypertension type: essential hypertension Fatty liver K76.0 Type 2 diabetes mellitus with hyperglycemia E11.65 Assessment & Plan Assessment & Plan (1) Annual physical exam: Code(s): Z00.00 - Encounter for general adult medical examination without abnormal findings Category: Medical (2) Obesity (BMI 30-39.9): Code(s): E66.9 - Obesity, unspecified Category: Medical (3) Elevated blood sugar: Code(s): R73.9 - Hyperglycemia, unspecified Category: Medical (4) Hypercholesterolemia: Code(s): E78.00 - Pure hypercholesterolemia, unspecified Category: Medical (5) Hypertension: Code(s): I10 - Essential (primary) hypertension Category: Medical Qualifiers: Hypertension type: essential hypertension Qualified Code(s): I10 - Essential (primary) hypertension (6) Fatty liver: Code(s): K76.0 - Fatty (change of) liver, not elsewhere classified Category: Medical (7) Type 2 diabetes mellitus with hyperglycemia: Code(s): E11.65 - Type 2 diabetes mellitus with hyperglycemia Category: Medical Plan - Continue current antihypertensive regimen; monitor blood pressure and adjust medications as needed. - Reinforce dietary changes to manage hyperlipidemia and diabetes mellitus, consider re-evaluation in three months. - Educate on diabetes management, recommend diabetic diet consultation and routine monitoring of blood glucose levels. - Repeat fasting lipid panel and liver function tests in three months to reassess control of hyperlipidemia and liver function status. - Follow-up for potential initiation of lipid-lowering therapy pending lipid re-evaluation. - Education on potential diabetes complications, including neuropathy, retinopathy, and nephropathy. I discussed with the patient the importance of adhering to dietary recommendations to manage his newly diagnosed Type 2 Diabetes Mellitus and elevated lipid levels, emphasizing the need for increased consumption of whole foods, vegetables, and lean proteins while avoiding processed and high-fat foods. We discussed the necessity of regular exercise for better metabolic control. The urgency of addressing elevated triglyceride levels to prevent pancreatitis was reviewed, and I highlighted the need for follow-up fasting blood tests to evaluate treatment efficacy. I advised on the necessity of regular diabetic monitoring, including hemoglobin A1c and potential change in pharmacotherapy if lifestyle modifications prove insufficient. Additionally, I suggested flu and pneumonia vaccinations due to increased chronic disease risk factors. - Maintain a healthy, balanced diet focused on reducing sugar and fat intake, particularly avoiding processed foods and takeout meals. - Begin or increase physical activity, such as regular walking or hiking, to improve cardiovascular and metabolic fitness. - Monitor blood pressure and blood glucose levels regularly. - Schedule and attend follow-up lab work in three months to reassess glucose and lipid levels. - Contact the office if experiencing new or worsening symptoms such as chest pain or significant changes in vision or sensation in feet. Orders: Orders Comprehensive Met. Panel 3 Months R73.9 - Hyperglycemia, unspecified Lipid Panel 3 Months E78.00 - Pure hypercholesterolemia, unspecified AMB Hemoglobin A1c Today Z13.9 - Encounter for screening, unspecified Creatinine Urine 3 Months E11.65 - Type 2 diabetes mellitus with hyperglycemia Hemoglobin A1c 3 Months R73.9 - Hyperglycemia, unspecified Microalbumin, Random (w Creat) 3 Months E11.65 - Type 2 diabetes mellitus with hyperglycemia
--- OUTSIDE RECORDS SUMMARY | 2024-11-30 09:20 | XMS_ITS | Patient Health Record ---
Author Organization [facility] Address [address] [place] [address] Care Team Providers Care Medical Receptionist Biller Name Role Phone Mesha Leija MD Primary Care Provider Gregory Cristina Jr Unavailable [phone] ALLERGIES Allergen (clinical drug ingredient) Drug/Non Drug Allergy documented on EMR Reaction Allergy Type Onset Date Status hydrochlorothiazide Hydrochlorothiazide Unknown Drug Aller gy Active cephalexin Cephalexin Unknown Drug Allergy Activ e Eggs (uncoded) Unknown Allergy Activ e Shellfish (FN) Shellfish (uncoded) Unknown Allergy Active REASON FOR REFERRAL No Information MEDICATIONS Medication SIG (Take, Route, Frequency, Duration) Notes Start Date End Date Status Lisinopril Active Vitamin D Active Aspirin PRN Active Multi Vitamin Active Ibuprofen PRN Active MiraLax (colon prep) 8.3 ounce ((238) grams mixed with Gatorade or Crystal Light orally begin at 5:00 p.m. the day before the procedure for 1 day 12/25/2020 Active IMMUNIZATIONS Vaccine Route Administration Date Status Comme nts Influenza Unknown 12/25/2020 Refused SOCIAL HISTORY Tobacco Use: Social History Observation Description Date Details (start date - stop date) Never Smoker NA - NA Sex Assigned At : Social History Observation Description Sex Assigned At Unknown Tobacco Use/Smoking Question Answer Notes Patient is a nonsmoker Alcohol Screen Question Answer Notes Did you have a drink containing alcohol in the p ast year? No Points 0 Interpretation Negative PROBLEMS Problem Type ICD Code Onset Dates Problem Status W/U Status Risk SNOMED Code Notes Problem Rectal bleeding (K62.5) Active confirmed [id number] PLAN OF TREATMENT Future Test Test Name Order Date COLONOSCOPY 12/25/2020 Insurance Providers Payer Name Payer Address Payer Phone Subscriber Number Group Number Insured Name Patient Relationship to Insured Coverage Start Date Coverage End Date [facility] [address] [place], [place] [id number] CODI DONNELLY Self - patient is the insured MEDICAL (GENERAL) HISTORY Medical History History ICD Code hypertension Surgical History Surgery Date(Month/Year) left knee surgery wisdom teeth extraction
== END 2024-11-30 09:57 | disposition home or self-care (01) ==
PROVIDERS: PCP Internal Medicine; Visit Provider Internal Medicine
DX: Z00.00 Encounter for general adult medical examination without abnormal findings (principal); E66.9 Obesity, unspecified; E11.65 Type 2 diabetes mellitus with hyperglycemia; Z68.34 Body mass index [BMI] 34.0-34.9, adult; R73.9 Hyperglycemia, unspecified; E78.00 Pure hypercholesterolemia, unspecified; I10 Essential (primary) hypertension; K76.0 Fatty (change of) liver, not elsewhere classified

== ENCOUNTER → 2024-11-30 08:58 | Outpatient (BNVA) | payer BC, SELFPAY | PROVIDERS: PCP Internal Medicine; Visit Provider Internal Medicine | DX: Z00.00 Encounter for general adult medical examination without abnormal findings (principal); E66.9 Obesity, unspecified; Z68.34 Body mass index [BMI] 34.0-34.9, adult; E11.65 Type 2 diabetes mellitus with hyperglycemia; E78.00 Pure hypercholesterolemia, unspecified; I10 Essential (primary) hypertension; K76.0 Fatty (change of) liver, not elsewhere classified | CPT/HCPCS: 83036; 96127 ==

== ENCOUNTER 2025-03-10 06:10 | Outpatient (REF) | payer BC, SELFPAY ==
--- OUTSIDE RECORDS SUMMARY | 2025-03-10 06:14 | XMS_ITS | Patient Health Record ---
Author Organization [facility] Address [address] [place] [address] Care Team Providers Care Medical Territory Manager Name Role Phone Po Mesha MURPHY Primary Care Provider Gregory Cristina Jr Unavailable Allergies Allergen (clinical drug ingredient) Drug/Non Drug Allergy documented on EMR Reaction Allergy Type Onset Date Status hydrochlorothiazide Hydrochlorothiazide Unknown Drug Aller gy Active cephalexin Cephalexin Unknown Drug Allergy Activ e Eggs (uncoded) Unknown Allergy Activ e Shellfish (FN) Shellfish (uncoded) Unknown Allergy Active Reason For Referral No Information Medications Medication SIG (Take, Route, Frequency, Duration) Notes Start Date End Date Status Lisinopril Active Vitamin D Active Aspirin PRN Active Multi Vitamin Active Ibuprofen PRN Active MiraLax (colon prep) 8.3 ounce ((238) grams mixed with Gatorade or Crystal Light orally begin at 5:00 p.m. the day before the procedure for 1 day 12/25/2020 Active Immunizations Vaccine Route Administration Date Status Comme nts Influenza Unknown 12/25/2020 Refused Social History Tobacco Use: Social History Observation Description Date Details (start date - stop date) Never Smoker NA - NA Tobacco Use/Smoking Question Answer Notes Patient is a nonsmoker Alcohol Screen Question Answer Notes Did you have a drink containing alcohol in the p ast year? No Points 0 Interpretation Negative Problems Problem Type SNOMED Code ICD Code Onset Dates Problem Status W/U Status Risk Notes Problem [id number] Rectal bleeding (K62.5) Active confirmed Plan Of Treatment Future Test Test Name Order Date COLONOSCOPY 12/25/2020 Insurance Providers Payer Name Payer Address Payer Phone Subscriber Number Group Number Insured Name Patient Relationship to Insured Coverage Start Date Coverage End Date [facility] [address] [place], [place] [phone] [id number] CODI DONNELLY Self - patient is the insured Medical (General) History Medical History History ICD Code hypertension Surgical History Surgery Date(Month/Year) left knee surgery wisdom teeth extraction
[2025-03-10 07:54] LABS: Estimated Average Glucose 108 mg/dL; Hemoglobin A1c % 5.4 % (<6.0)
[2025-03-10 09:08] LABS: Alanine Aminotransferase 53 U/L (0-40); Albumin Level 4.5 g/dL (3.5-5.0); Alkaline Phosphatase 72 U/L (39-117); Anion Gap 13 (12-20); Aspartate Amino Transferase 33 U/L (5-37); Bilirubin Total 0.3 mg/dL (0.0-1.0); Blood Urea Nitrogen 16 mg/dL (9-16); Calcium 9.8 mg/dL (8.4-10.2); Carbon Dioxide 26 mmol/L (22-29); Chloride 106 mmol/L (96-108); Cholesterol 174 mg/dL (<200); Estimated Glomerular Filt Rate > 60; Glucose Random 95 mg/dL (60-115); HDL Cholesterol 37 mg/dL (>40); LDL Cholesterol Calculated 104 mg/dL (<100); Potassium 3.7 mmol/L (3.3-5.1); Sodium 141 mmol/L (135-145); Total Protein 7.5 g/dL (6.5-8.0); Triglycerides 165 mg/dL (<150)
[2025-03-10 09:35] LABS: Creatinine Urine 106.72 mg/dL; Microalbum/Creatinine Ratio Ur 4.6 ug/mg cr (<30)
== END 2025-03-10 06:11 | disposition home or self-care (01) ==
LOC: HO.LAB 06:10
PROVIDERS: PCP Internal Medicine; Visit Provider Internal Medicine
DX: R73.9 Hyperglycemia, unspecified (principal); E78.00 Pure hypercholesterolemia, unspecified; E11.65 Type 2 diabetes mellitus with hyperglycemia
CPT/HCPCS: 36415; 80053; 80061; 82043; 82570; 83036

== ENCOUNTER 2025-04-01 10:30 | Outpatient (AMB) | payer BC, SELFPAY ==
[2025-04-01 10:37] VITALS: BP 128/78; PULSE 71; O2SAT 97; BMI 29.6
--- NOTE | 2025-04-01 10:37 | A.OFFPC_ITS ---
Vital Signs 3 04/01/25 10:37 Height 5 ft 10 in Weight 206 lb BMI 29.6 BP 128/78 Blood Pressure Location Lt brachial Position Sitting Pulse 71 Pulse Source Pulse Oximeter Pulse Oximetry (%) 97 Oxygen Delivery Method Room Air Intake Visit Reasons: dm Allergies cephalexin [Keflex] Allergy (Intermediate, Verified 04/01/25 10:37) Swelling hydrochlorothiazide Allergy (Intermediate, Verified 04/01/25 10:37) rash egg Adverse Reaction (Intermediate, Verified 04/01/25 10:37) Gastrointestinal Upset Shellfish Adverse Reaction (Intermediate, Uncoded 04/01/25 10:37) VOMITING Medication List - Last Reconciled 04/01/25 by Mesha Leija MD betamethasone dipropionate 0.05% 1 appl topical BID PRN 14 days [Blood pressure monitor As directed] cholecalciferol (vitamin D3) (Vitamin D3) 250 mcg PO DAILY hydroxyzine HCl 25 mg PO BID PRN levocetirizine (Xyzal) 5 mg PO DAILY lisinopril 10 mg PO DAILY multivitamin 1 tab PO DAILY [id number] 333-1.7 mg (Airborne (ascorbate sodium)) tabs PO Tobacco use date assessed: 11/30/24 Dental Screening Dental Screen Date: 11/30/24 HPI dm 2 HPI0 Details 2 weeks ago hand rash and was in the [facility] Medical History (Updated 04/01/25 @ 10:58 by Mesha Leija MD) Overweight (BMI 25.0-29.9) Obesity (BMI 30-39.9) Elevated blood sugar Obesity (BMI 30.0-34.9) Ingrown toenail of both feet Bruise Environmental allergies Seasonal allergies Constipation Fatty liver Hypercholesterolemia Vitamin D deficiency Hypertension Surgical History H/O wisdom tooth extraction History of left knee surgery Family History (Updated 11/30/24 @ 09:04 by Ludivina Tenorio CMA) Father No problems noted. Mother No problems noted. Paternal Grandmother Breast cancer Maternal Grandfather Myocardial infarction Sister No problems noted. Social History (Updated 11/30/24 @ 09:31 by Mesha Leija MD) Housing: House Alcohol intake: current Comment: stopped 2019 Patient Tobacco Use Status: Never used Tobacco Tobacco use type: Cigarette e-Cigarette/Vaping Use: Never Used Second Hand Smoke Exposure: No Current occupational status: employed Cognitive needs: No Hearing needs: No Vision needs: No Questionnaire PHQ-9 Over the last 2 weeks, how often have you been bothered by any of the following problems? 1. Little interest or pleasure in doing things: not at all 2. Feeling down, depressed, or hopeless: not at all 3. Trouble falling or staying asleep, or sleeping too much: not at all 4. Feeling tired or having little energy: not at all 5. Poor appetite or overeating: not at all 6. Feeling bad about yourself - or that you are a failure or have let yourself or your family down: not at all 7. Trouble concentrating on things, such as reading the newspaper or watching television: not at all 8. Moving or speaking so slowly that other people could have noticed. Or the opposite - being so fidgety or restless that you have been moving around a lot more than usual: not at all 9. Thoughts that you would be better off or of hurting yourself in some way: not at all Total score: 0 Source: Developed by Drs. Isaac Camejo, Amarilys Ruiz, Ramon Ty and colleagues, with an educational bobby from [employer]. Thrive Questionnaire Date Thrive assessed: 11/24/24 I am a: Patient What is your living situation today?: I choose not to answer this question Within the past 12 months, did the food you bought not last and you didn't have the money to get more?: I choose not to answer this question Within the past 12 months, did you worry whether your food would run out before you got money to buy more?: I choose not to answer this question Do you have trouble paying for medicines?: I choose not to answer this question Do you have trouble getting transportation to medical appointments?: I choose not to answer this question Do you have trouble paying your heating and electricity bill?: I choose not to answer this question Do you have trouble taking care of your child, family member or friend?: I choose not to answer this question Do you have trouble with day-to-day activities such as bathing, preparing meals, shopping, managing finances, etc.?: I choose not to answer this question Are you currently unemployed and looking for a job?: I choose not to answer this question Are you interested in more education?: I choose not to answer this question Please select the resources that you would like help with: None Currently or been in a relationship where the following occur: I choose not to answer THRIVE Score: 0 YONG-7 AMB Questionnaire YONG-7 Date YONG - 7 assessed: 11/30/24 Source: Developed by Drs. Isaac Camejo, Amarilys Ruiz, Ramon Ty and colleagues, with an educational bobby from [employer]. Physical exam (Primary Care) Vital Signs: Last Vital Signs Pulse 71 04/01/25 10:37 BP 128/78 04/01/25 10:37 Pulse Ox 97 04/01/25 10:37 Oxygen Delivery Method Room Air 04/01/25 10:37 BMI result Body Mass Index 29.6 Tobacco/Smoking Status: Tobacco use Status Tobacco use date assessed 11/30/24 04/01/25 10:41 Patient Tobacco Use Status Never used Tobacco 04/01/25 10:41 Tobacco use type Cigarette 04/01/25 10:41 e-Cigarette/Vaping Use Never Used 04/01/25 10:41 PHQ-9: PHQ-9 Score PHQ-9: Total score 0 04/01/25 10:41 Thrive Assessment: Date of Thrive Assessment Date Thrive assessed 11/24/24 04/01/25 10:41 Currently or been in a relationship where the following occur: I choose not to answer Const General: alert; No acute distress Eyes Conjunctivae: conjunctivae normal Resp Auscultation: clear to auscultation bilaterally Cardio Rate: regular rate Rhythm: regular rhythm GI Inspection: Yes normal to inspection Extrem General: Yes normal to inspection and No edema Hand/finger images: 2 1. papulovesicular 2-3 mm rash on both hand 1-2 cm area 2. 3. Coding Level of Care Code Est Pt Level 4 (97901) Complex EM visit Add On G2211 Diagnoses Type 2 diabetes mellitus with hyperglycemia E11.65 Hypercholesterolemia E78.00 Essential hypertension I10 Hypertension type: essential hypertension Fatty liver K76.0 Overweight (BMI 25.0-29.9) E66.3 Allergic contact dermatitis L23.9 Assessment & Plan Assessment & Plan (1) Type 2 diabetes mellitus with hyperglycemia: Code(s): E11.65 - Type 2 diabetes mellitus with hyperglycemia Category: Medical Plan: Decrease the amount of carbohydrate intake, pasta, bread, rice and potatoes are all sugar and that is aside from all the sweet stuff, remember that fruits are good but they are Sweet also. Hemoglobin A1c goal of less than 6.5. With a tremendous amount of weight loss patient A1c is in the normal range. Patient is diet controlled (2) Hypercholesterolemia: Code(s): E78.00 - Pure hypercholesterolemia, unspecified Category: Medical Plan: Avoid fried foods, chicken skin, eggs, butter margarine, pastries and meat. Be it pork or beef they have a lot of cholesterol LDL goal of less than 100. Triglyceride was elevated before and with the henry loss of weight has gone down LDL is 104 (3) Hypertension: Code(s): I10 - Essential (primary) hypertension Category: Medical Qualifiers: Hypertension type: essential hypertension Qualified Code(s): I10 - Essential (primary) hypertension Plan: Continue with blood pressure medication. Decrease salt intake and exercise on lisinopril 10 mg once a day (4) Fatty liver: Code(s): K76.0 - Fatty (change of) liver, not elsewhere classified Category: Medical Plan: Low-fat diet and exercise (5) Overweight (BMI 25.0-29.9): Code(s): E66.3 - Overweight Category: Medical Plan: Continue with the weight loss. (6) Allergic contact dermatitis: Comment: bilateral hands Code(s): L23.9 - Allergic contact dermatitis, unspecified cause Category: Medical Plan History of Present Illness The patient is a 50-year-old male presenting with follow-up for chronic conditions including hypertension, hypercholesterolemia, and diabetes mellitus. The patient has experienced a 34-pound weight loss since November 2024, currently weighing 206 pounds. The patient last underwent colonoscopy in December 2020 revealing a tubular adenoma of the colon. Recent blood work in February indicated normal electrolytes and renal function, with improved hemoglobin A1c and triglyceride levels, and an LDL level recorded at 104. There has been a noted decrease in elevated liver function metrics. The patient?s diabetes is diet-controlled with the aim of maintaining hemoglobin A1c levels below 6.5. The LDL management goal is to achieve levels below 100, and the patient is taking lisinopril 10 mg daily for managing blood pressure. Dietary adjustments include reduced consumption of fatty foods and use of nonstick cooking sprays. Additionally, the patient reports localized dermatitis symptoms in both hands and parts of the wrist, likely associated with garden glove use, with current treatment involving application of hand cream. Health Maintenance - Target of hemoglobin A1c below 6.5 for diabetes management. - Cholesterol management targeting LDL less than 100 mg/dL. - Weight management through diet modifications and physical activity. - Blood pressure management with Lisinopril 10 mg daily. - Regular follow-up to monitor triglyceride and liver function levels. - Yearly cholesterol and overall blood work testing. - Colon health surveillance through past colonoscopy. Social History - Patient is compliant with dietary adjustments, reducing intake of fatty foods and utilizing nonstick cooking spray. - Regular engagement in physical activities contributing to weight loss. - Gardening as a form of physical activity, occasionally wearing gloves. Review of Systems - General: Denies excessive sweating. - Cardiovascular: Reports normal blood pressure while on medication. - Respiratory: Denies breathing difficulties. - Gastrointestinal: Reports normal bowel movements. - Integumentary: Reports localized rash on hands and wrist, suggestive of contact dermatitis. - Endocrine: Reports stable blood sugar levels with recent A1c improvement. Physical Exam - General- Weight recorded at 206 pounds. - Skin- Localized rash on hands and part of the wrist, consistent with contact dermatitis. - Cardiovascular- Satisfactory response to lisinopril management. Results - Labs: Hemoglobin A1c improved from 6.8 to 5.4. Triglycerides decreased from 418 to 165 mg/dL. LDL at 104 mg/dL. Liver function improved, previous one was 85, now 53. Plan 1. 5. Continued use of lisinopril 10 mg for blood pressure, complemented by further dietary refinement aiming an LDL below 100, was necessary. For hepatic steatosis, periodic liver function tests are required, given improved metrics: The dermatological symptoms suggest contact dermatitis; therefore, a topical steroid for symptomatic relief was suggested with instructions to alter gardening gloves or ensure proper hygiene to prevent recurrence. The next evaluations, including fasting blood tests, will be in six months to reassess cholesterol, liver functions, and diabetes standard numbers. Patient was informed and verbally consented to the use of an ambient scribe for clinic note documentation during this visit. Discussion Notes I discussed with the patient the positive impact of recent lifestyle modifications on their chronic conditions. Importantly, the reduction in hemoglobin A1c and triglyceride levels reflects effective management and weight loss intervention. I explained the benefits of continuing medication adherence with lisinopril for hypertension, as well as the significance of continued dietary adjustments to further manage cholesterol levels and liver health. For the new onset of dermatitis symptoms, I advised on potential glove irritant exposure and discussed topical steroid use to alleviate symptoms. I recommended switching or cleaning gardening gloves to reduce allergen or irritant exposure. Regular monitoring, including blood work, will be scheduled in six months to ensure maintenance and potential adjustment of treatment plans based on objective results. I encouraged consistent compliance with follow-up instructions and emphasized the importance of seeking medical advice should symptoms manifest or escalate. Patient Instructions - Continue taking lisinopril 10 mg daily as prescribed. - Maintain a low-fat diet with minimal fried foods, using nonstick cooking spray. - Engage in regular physical activity to support weight management. - Apply prescribed topical steroid cream to affected areas for one to two weeks. - Avoid irritant exposure from current gloves; wash or replace them. - Return for fasting blood work in six months. - Seek care if rash worsens or if new symptoms develop. Orders: Orders 2 Comprehensive Met. Panel 6 Months E11.65 - Type 2 diabetes mellitus with hyperglycemia Complete Blood Count Auto Diff 6 Months E11.65 - Type 2 diabetes mellitus with hyperglycemia Hemoglobin A1c 6 Months E11.65 - Type 2 diabetes mellitus with hyperglycemia Free T4 (Free Thyroxine) 6 Months E11.65 - Type 2 diabetes mellitus with hyperglycemia Thyroid Stimulating Hormone 6 Months E11.65 - Type 2 diabetes mellitus with hyperglycemia Lipid Panel 6 Months E11.65 - Type 2 diabetes mellitus with hyperglycemia, E78.00 - Pure hypercholesterolemia, unspecified Vitamin B12 and Folate 6 Months E11.65 - Type 2 diabetes mellitus with hyperglycemia Medications: New 2 betamethasone dipropionate 0.05% 1 appl topical BID 14 days PRN 45 grams 0RF skin irritation L23.9 - Allergic contact dermatitis, unspecified cause Discontinued 2 clobetasol 0.05% Do not use on hands face or genitals. Please wash your hands after applying this medication or use gloves Discontinued Reason: Duplicate 1 appl topical BID 1 week 30 grams 0RF
--- OUTSIDE RECORDS SUMMARY | 2025-04-01 11:01 | XMS_ITS | Patient Health Record ---
Author Organization [facility] Address [address] [place] [address] Care Team Providers Care Workforce Staffing Advisor Name Role Phone Po Mesha MURPHY Primary Care Provider Gregory Cristina Jr Unavailable [phone] Allergies Allergen (clinical drug ingredient) Drug/Non Drug [...] Problem Status W/U Status Risk Notes Problem [id number] Rectal bleeding (K62.5) Active confirmed Plan Of Treatment Future Test Test Name Order Date COLONOSCOPY 12/25/2020 Insurance Providers Payer Name Payer Address Payer Phone Subscriber Number Group Number Insured Name Patient Relationship to Insured Coverage Start Date Coverage End Date [facility] [address] [place], [place] [phone] [id number] CODI DONNELLY Self - patient is the insured Medical (General) History Medical History History ICD Code hypertension Surgical History Surgery Date(Month/Year) left knee surgery wisdom teeth extraction
== END 2025-04-01 11:08 | disposition home or self-care (01) ==
LOC: HO.HMCH 10:31
PROVIDERS: PCP Internal Medicine; Visit Provider Internal Medicine
DX: E11.65 Type 2 diabetes mellitus with hyperglycemia (principal); E78.00 Pure hypercholesterolemia, unspecified; I10 Essential (primary) hypertension; K76.0 Fatty (change of) liver, not elsewhere classified; E66.3 Overweight; L23.9 Allergic contact dermatitis, unspecified cause

== ENCOUNTER → 2025-04-01 10:30 | Outpatient (BNVA) | payer BC, SELFPAY | PROVIDERS: PCP Internal Medicine; Visit Provider Internal Medicine ==

== ENCOUNTER 2025-08-01 11:33 | Outpatient (AMB) | payer BC, SELFPAY ==
[2025-08-01 11:59] VITALS: BP 122/80; PULSE 80; TEMP 36.8; O2SAT 98
--- NOTE | 2025-08-01 11:59 | AM.OFFWIN_ITS ---
Intake Vital Signs 08/01/25 11:59 Height 5 ft 10 in Weight 209 lb BMI 30.0 BP 122/80 Blood Pressure Location Lt brachial Position Sitting Pulse 80 Pulse Source Pulse Oximeter Temp 98.2 F Temp Source Oral Pulse Oximetry (%) 98 Oxygen Delivery Method Room Air Intake Visit Reasons: EP-body ache Patient Tobacco Use Status: Never used Tobacco Allergies cephalexin (Keflex) Allergy (Intermediate, Verified 08/01/25 12:05) Swelling hydrochlorothiazide Allergy (Intermediate, Verified 08/01/25 12:05) rash egg Adverse Reaction (Intermediate, Verified 08/01/25 12:05) Gastrointestinal Upset Shellfish Adverse Reaction (Intermediate, Uncoded 04/01/25 10:37) VOMITING Do you need a note to return to daycare/school/sports/work: No HPI HPI Comments History of Present Illness Details History - The patient is a 50-year-old male pres enting with a rash primarily affecting the back, hands, and legs. - The rash has been present for approxim ately three to four months, initially appearing as small spots on the hands. - The rash is characterized by large clu sters on the back and smaller spots on the hands and legs, with no pus formation but some flaking. - The patient reports significant itchin g and burning sensations associated with the rash. - Initial treatment with a steroid cream provided partial relief but did not resolve the condition. - The patient has not yet seen a dermato logist but has been advised to do so. - He denies new foods, lotions, soaps, m edications, clothes, joint pain, fever, chills. Physical Exam General: Cooperative, healthy appearing, comfortable, no acute distress and well developed Orientation: Patient oriented x3 Limitations: Wrist hurts, cannot work anymore Mouth: normal, moist oral mucosa Neck: Normal visual inspection and Yes full ROM Respiratory: Normal respiratory effort and able to speak in complete sentences. Clear to auscultation bilaterally. No w/r/r noted. Cardiovascular: RRR, no m/r/g noted. Normal S1 and S2 Skin: Patches noted on the back, arms, chest with erythema and white flaking noted. Dry, blanchable, non-tender. Patient was informed and verbally consented to the use of an ambient scribe for clinic note documentation during this visit [facility] Medical History (Updated 04/01/25 @ 10:58 by Mesha Leija MD) Overweight (BMI 25.0-29.9) Obesity (BMI 30-39.9) Elevated blood sugar Obesity (BMI 30.0-34.9) Ingrown toenail of both feet Bruise Environmental allergies Seasonal allergies Constipation Fatty liver Hypercholesterolemia Vitamin D deficiency Hypertension Surgical History H/O wisdom tooth extraction History of left knee surgery Family History (Updated 11/30/24 @ 09:04 by Ludivina Tenorio [facility]) Father No problems noted. Mother No problems noted. Paternal Grandmother Breast cancer Maternal Grandfather Myocardial infarction Sister No problems noted. Social History (Updated 11/30/24 @ 09:31 by Mesha Leija MD) Housing: House Alcohol intake: current Comment: stopped 2019 Patient Tobacco Use Status: Never used Tobacco Tobacco use type: Cigarette e-Cigarette/Vaping Use: Never Used Second Hand Smoke Exposure: No Current occupational status: employed Cognitive needs: No Hearing needs: No Vision needs: No Review of Systems Const All systems reviewed & are unremarkable except as noted in HPI and below Physical Exam Vital Signs: Last Vital Signs Temp 98.2 F 08/01/25 11:59 Pulse 80 08/01/25 11:59 BP 122/80 08/01/25 11:59 Pulse Ox 98 08/01/25 11:59 Oxygen Delivery Method Room Air 08/01/25 11:59 BMI result Body Mass Index 30.0 Assessment & Plan Assessment & Plan (1) Rash: Code(s): R21 - Rash and other nonspecific skin eruption Plan Most likely Contact Dermatitis vs allergic rhinitis vs eczema vs fungal plan - Prescribe oral prednisone to reduce inflammation and alleviate symptoms. - Continue use of topical steroid cream as previously prescribed. - Referral to dermatology for further evaluation and possible skin scraping to rule out other conditions. Orders: Referrals Dermatology Referral R21 - Rash and other nonspecific skin eruption Medications: New prednisone 40 mg (2 x 20 mg) PO DAILY 10 tabs 0RF 5 days famotidine (Pepcid) 20 mg PO DAILY 14 tabs 0RF triamcinolone acetonide 0.5% do not exceed use greater than 14 days 1 appl topical BID 15 grams 0RF 14 days Coding Level of Care Code Est Pt Level 3 (70739) Diagnoses Rash R21
--- OUTSIDE RECORDS SUMMARY | 2025-08-01 14:14 | XMS_ITS | Patient Health Record ---
Author Organization [facility] Address [address] [place] [address] Care Team Providers Care Policy Advisor Name Role Phone Po Mesha MURPHY [...] Problem Status W/U Status Risk Notes Problem [id number] Rectal bleeding (K62.5) Active confirmed Plan Of Treatment Future Test Test Name Order Date COLONOSCOPY 12/25/2020 Insurance Providers Payer Name Payer Address Payer Phone Subscriber Number Group Number Insured Name Patient Relationship to Insured Coverage Start Date Coverage End Date [facility] [address] [place], [place] [id number] CODI DONNELLY Self - patient is the insured Medical (General) History Medical History History ICD Code hypertension Surgical History Surgery Date(Month/Year) left knee surgery wisdom teeth extraction
== END 2025-08-01 13:16 | disposition home or self-care (01) ==
PROVIDERS: PCP Internal Medicine; Visit Provider Physician Assistant Medical
DX: R21 Rash and other nonspecific skin eruption (principal)

== ENCOUNTER 2025-09-30 06:13 | Outpatient (REF) | payer BC, SELFPAY ==
--- OUTSIDE RECORDS SUMMARY | 2025-09-30 06:16 | XMS_ITS | Patient Health Record ---
Author Organization [facility] Address [address] [place] [address] Care Team Providers Care Attendant Coin Operated Laundry Name Role Phone Mesha Leija MD Primary [...] at 5:00 p.m. the day before the procedure; Duration: 1 day 12/25/2020 Active Immunizations Vaccine Route [...] Problem Status W/U Status Risk Notes Problem Rectal bleeding ([id number]) Rectal bleeding (K62.5) Active confirmed Plan Of Treatment Future Test Test Name Order Date COLONOSCOPY 12/25/2020 Insurance Providers Payer Name Payer Address Payer Phone Subscriber Number Group Number Insured Name Patient Relationship to Insured Coverage Start Date Coverage End Date [employer] [address] [place], [place] [phone] [id number] CODI DONNELLY Self - patient is the insured Medical (General) History Medical History History ICD Code hypertension Surgical History Surgery Date(Month/Year) left knee surgery wisdom teeth extraction
[2025-09-30 06:26] LABS: MANUAL DIFF FLAG NO
[2025-09-30 07:13] LABS: Hematocrit 45.3 % (42.0-52.0); Hemoglobin 15.6 g/dl (14.0-18.0); Imm Gran Abs Auto 0.01 X10*3/uL (0.00-0.03); Imm Gran Pct Auto 0.1 % (0.0-0.4); Lymphocytes Absolute Auto 3.1 X10*3/uL (1.2-4.9); Mean Corpuscular HGB Conc 34.4 g/dl (31.0-36.0); Mean Corpuscular Hemoglobin 30.2 pg (27.0-33.0); Mean Corpuscular Volume 87.6 fL (80.0-98.0); NRBC Abs Auto 0.000 X10*3/uL (0.0-0.012); NRBC Pct Auto 0.0 /100WBC (0.0-0.2); Platelet Count 266 X10*3/uL (160-400); Red Blood Count 5.17 X10*6/uL (4.60-5.80); White Blood Count 7.1 X10*3/uL (4.8-10.8)
[2025-09-30 08:00] LABS: Alanine Aminotransferase 41 U/L (0-40); Albumin Level 5.1 g/dL (3.5-5.0); Alkaline Phosphatase 72 U/L (39-117); Anion Gap 11 (12-20); Aspartate Amino Transferase 31 U/L (5-37); Blood Urea Nitrogen 13 mg/dL (9-16); Calcium 9.8 mg/dL (8.4-10.2); Carbon Dioxide 29 mmol/L (22-29); Chloride 105 mmol/L (96-108); Cholesterol 213 mg/dL (<200); Estimated Glomerular Filt Rate > 60; HDL Cholesterol 40 mg/dL (>40); Potassium 3.7 mmol/L (3.3-5.1); Sodium 141 mmol/L (135-145); Total Protein 7.9 g/dL (6.5-8.0); Triglycerides 183 mg/dL (<150)
[2025-09-30 08:24] LABS: Folate 12.3 ng/mL (> or = 4.0); Vitamin B12 761 pg/mL (200-900)
[2025-09-30 08:26] LABS: Free T4 (Free Thyroxine) 0.88 ng/dL (0.71-1.85); Thyroid Stimulating Hormone 1.93 uIU/mL (0.32-4.0)
== END 2025-09-30 06:14 | disposition home or self-care (01) ==
LOC: HO.LAB 06:13
PROVIDERS: PCP Internal Medicine; Visit Provider Internal Medicine
DX: E11.65 Type 2 diabetes mellitus with hyperglycemia (principal); E78.00 Pure hypercholesterolemia, unspecified
CPT/HCPCS: 36415; 80053; 80061; 82570; 82607; 82746; 83036; 84439; 84443; 85025

== ENCOUNTER 2025-10-14 08:31 | Outpatient (AMB) | payer BC, SELFPAY ==
--- OUTSIDE RECORDS SUMMARY | 2025-10-14 08:34 | XMS_ITS | Patient Health Record ---
Author Organization [facility] Address [address] [place] [address] Care Team Providers Care Cell Efficiency Supervisor Name Role Phone Mesha Leija MD Primary Care Provider Gregory Cristina Jr Unavailable Allergies Allergen (clinical drug ingredient) Drug/Non Drug Allergy documented on EMR Reaction Allergy Type Onset Date Status Eggs (uncoded) Unknown Allergy Activ e Shellfish (uncoded) Unknown Allergy Active cephalexin Cephalexin Unknown Drug Allergy Activ e hydrochlorothiazide Hydrochlorothiazide Unknown Drug Aller gy Active Reason For Referral No Information Medications [...] stop date) Never Smoker NA - NA Social History Drugs/Alcohol: Social Info Question Answer Notes Alcohol Screen Did you have a drink containing alcohol in the past year? No Points 0 Interpretation Negative Tobacco Use: Social Info Question Answer Notes Tobacco Use/Smoking Patient is a nonsmoker Additional Details Category Social Info Options Details Miscellaneous: Marital status: single Occupation: Desktop Administ rator Problems Problem Type SNOMED Code ICD Code Onset Dates Problem Status W/U Status Risk Notes Problem Rectal bleeding ([id number]) Rectal bleeding (K62.5) Active confirmed Plan Of Treatment Future Test Test Name Order Date COLONOSCOPY 12/25/2020 Insurance Providers Payer Name Payer Address Payer Phone Subscriber Number Group Number Insured Name Patient Relationship to Insured Coverage Start Date Coverage End Date [facility] [address] [place], [place] [id number] CODI DONNELLY Self - patient is the insured Medical (General) History Medical History History ICD Code hypertension Surgical History Surgery Date(Month/Year) left knee surgery wisdom teeth extraction
[2025-10-14 08:35] VITALS: BP 138/76; PULSE 80; TEMP 36.2; O2SAT 97; BMI 29.0
--- NOTE | 2025-10-14 08:35 | A.OFFPC_ITS ---
Vital Signs 10/14/25 08:35 Height 5 ft 10 in Weight 202 lb 4 oz BMI 29.0 BP 138/76 Blood Pressure Location Lt brachial Position Sitting Pulse 80 Pulse Source Pulse Oximeter Temp 97.1 F Temp Source Temporal Artery Scan Pulse Oximetry (%) 97 Oxygen Delivery Method Room Air Intake Visit Reasons: DM Allergies cephalexin (Keflex) Allergy (Intermediate, Verified 10/14/25 08:39) Swelling hydrochlorothiazide Allergy (Intermediate, Verified 10/14/25 08:39) rash egg Adverse Reaction (Intermediate, Verified 10/14/25 08:39) Gastrointestinal Upset Shellfish Adverse Reaction (Intermediate, Uncoded 10/14/25 08:39) VOMITING Medication List - Last Reconciled 10/14/25 by Mesha Leija, betamethasone dipropionate 0.05% 1 appl topical BID PRN 14 days [Blood pressure monitor As directed] cholecalciferol (vitamin D3) (Vitamin D3) 250 mcg PO DAILY hydroxyzine HCl 25 mg PO BID PRN levocetirizine (Xyzal) 5 mg PO DAILY lisinopril 10 mg PO DAILY multivitamin 1 tab PO DAILY [id number] 333-1.7 mg (Airborne (ascorbate sodium)) tabs PO triamcinolone acetonide 0.5% 1 appl topical BID 14 days Tobacco use date assessed: 10/14/25 Dental Screening Dental Screen Date: 10/14/25 Did you have a dental visit in the last 12 months?: Yes Did you have a dental problem in the last 6 months where you did not have access to dental care?: No Was dental information given to patient?: Patient has dentist HPI HPI Comments History of Present Illness Details History of Present Illness The patient is a 50 year old individual presenting for management of chronic conditions and a skin rash. The patient is overweight but has had a recent 6- pound weight loss. The patient's past medical history is significant for hypertension, hypercholesterolemia, hepatic steatosis, and diabetes mellitus. The patient also has a history of a tubular adenoma of the colon, found on the last colonoscopy in 2020. The patient reports a persistent skin rash that has been present for approximately 10 months. The patient was seen at an urgent care center on August 01 for muscle aches and the rash, where a diagnosis of contact dermatitis was made, and the patient was prescribed oral prednisone. The rash, which the patient speculates could be eczema or a fungal infection, improved with topical steroids but recurred after discontinuation. The patient experienced blurry vision for a couple of weeks as a side effect of the oral prednisone. Recent lab work from September 30 revealed a normal complete blood count, electrolytes, and renal function. The blood sugar was 114 mg/dL with a normal hemoglobin A1c of 5.6%. Liver enzymes remain mildly elevated, and cholesterol levels are high with an LDL of 137 mg/dL and triglycerides of 183 mg/dL. B12, folic acid, thyroid function, and hepatitis panel were all within normal limits, with no proteinuria noted. Family history is notable for a mother with vasculiti s. Health Maintenance The patient was reminded of the need for a follow-up colonoscopy next year due to a history of tubular adenoma. A yearly physical exam is scheduled for November, but follow-up lab work will be deferred until January or February. 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 - Diet: The patient reports consuming fi eric and was advised to follow a low-fat diet. - Exercise: The patient was advised to r emain active. Results - Labs (September 30): - Complete Blood Count: Normal. - Electrolytes and Renal Function: Sandra l. - Blood Sugar (Fasting): 114 mg/dL. - Hemoglobin A1c: 5.6%. - Liver Enzymes: Mildly elevated, ALT 41 U/L. - Lipid Panel: LDL 137 mg/dL, Triglyceri zonia 183 mg/dL. - Vitamin B12, Folic Acid, TSH: All with in normal limits. - Urinalysis: No proteinuria. - Hepatitis Panel: Negative. - Procedures: - Colonoscopy (2020): Showed tubular ruby noma. [facility] Medical History Overweight (BMI 25.0-29.9) Obesity (BMI 30-39.9) Elevated blood sugar Obesity (BMI 30.0-34.9) Ingrown toenail of both feet Bruise Environmental allergies Seasonal allergies Constipation Fatty liver Hypercholesterolemia Vitamin D deficiency Hypertension Surgical History H/O wisdom tooth extraction History of left knee surgery Family History Father No problems noted. Mother No problems noted. Paternal Grandmother Breast cancer Maternal Grandfather Myocardial infarction Sister No problems noted. Social History Housing: House Alcohol intake: current Comment: stopped 2019 Patient Tobacco Use Status: Never used Tobacco Tobacco use type: Cigarette e-Cigarette/Vaping Use: Never Used Second Hand Smoke Exposure: No Current occupational status: employed Cognitive needs: No Hearing needs: No Vision needs: No Questionnaire PHQ-9 Over the last 2 weeks, how often have you been bothered by any of the following problems? 1. Little interest or pleasure in doing things: not at all 2. Feeling down, depressed, or hopeless: not at all 3. Trouble falling or staying asleep, or sleeping too much: not at all 4. Feeling tired or having little energy: not at all 5. Poor appetite or overeating: not at all 6. Feeling bad about yourself - or that you are a failure or have let yourself or your family down: not at all 7. Trouble concentrating on things, such as reading the newspaper or watching television: not at all 8. Moving or speaking so slowly that other people could have noticed. Or the o pposite - being so fidgety or restless that you have been moving around a lot more than usual: not at all 9. Thoughts that you would be better off or of hurting yourself in some way: not at all Total score: 0 Source: Developed by Drs. Isaac Camejo, Amarilys Ruiz, Ramon Ty and colleagues, with an educational bobby from [employer]. Thrive Questionnaire Date Thrive assessed: 11/24/24 I am a: Patient What is your living situation today?: I choose not to answer this question Within the past 12 months, did the food you bought not last and you didn't have the money to get more?: I choose not to answer this question Within the past 12 months, did you worry whether your food would run out before you got money to buy more?: I choose not to answer this question Do you have trouble paying for medicines?: I choose not to answer this question Do you have trouble getting transportation to medical appointments?: I choose not to answer this question Do you have trouble paying your heating and electricity bill?: I choose not to answer this question Do you have trouble taking care of your child, family member or friend?: I choose not to answer this question Do you have trouble with day-to-day activities such as bathing, preparing meals, shopping, managing finances, etc.?: I choose not to answer this question Are you currently unemployed and looking for a job?: I choose not to answer this question Are you interested in more education?: I choose not to answer this question Please select the resources that you would like help with: None Currently or been in a relationship where the following occur: I choose not to answer THRIVE Score: 0 AUDIT C Alcohol Use Questionnaire (AUDIT-C) 1. How often do you have a drink containing alcohol?: Never 3. How often do you have six or more drinks on one occasion?: Never Total Score: 0 YONG-7 AMB Questionnaire YONG-7 Date YONG - 7 assessed: 11/30/24 Feeling nervous, anxious, or on edge: 0 = Not at all Not being able to stop or control worryin = Not at all Worrying too much about different things: 0 = Not at all Trouble relaxin = Not at all Being so restless that it is hard to sit still: 0 = Not at all Becoming easily annoyed or irritable: 0 = Not at all Feeling afraid as if something awful might happen: 0 = Not at all Total YONG-7 score (0-4 normal; 5-9 mild; 10-14 moderate; 15-21 severe): 0 Source: Developed by Drs. Isaac Camejo, Amarilys Ruiz, Ramon Ty and colleagues, with an educational bobby from [employer]. Review of Systems Narrative Review of Systems - Constitutional: Reports a 6-pound weight loss. - Dermatologic: Reports a persistent rash for 10 months on the back, arms, and hands, characterized by itching, burning, and occasional bleeding. - Eyes: Reports a history of blurry vision for a few weeks while taking prednisone. - Gastrointestinal: Reports regular bowel movements. Denies blood in stool. - Genitourinary: Reports occasionally waking once at night to urinate but generally sleeps through the night. - Musculoskeletal: Reports a past episode of muscle aches. Physical exam (Primary Care) Vital Signs: Last Vital Signs Temp 97.1 F 10/14/25 08:35 Pulse 80 10/14/25 08:35 BP 138/76 10/14/25 08:35 Pulse Ox 97 10/14/25 08:35 Oxygen Delivery Method Room Air 10/14/25 08:35 BMI result Body Mass Index 29.0 Tobacco/Smoking Status: Tobacco use Status Tobacco use date assessed 10/14/25 10/14/25 08:40 Patient Tobacco Use Status Never used Tobacco 10/14/25 08:40 Tobacco use type Cigarette 10/14/25 08:40 e-Cigarette/Vaping Use Never Used 10/14/25 08:40 PHQ-9: PHQ-9 Score PHQ-9: Total score 0 10/14/25 08:58 Thrive Assessment: Date of Thrive Assessment Date Thrive assessed 11/24/24 10/14/25 08:40 Currently or been in a relationship where the following occur: I choose not to answer Narrative Physical Exam - General: 50-year-old, overweight individual. - Skin: Multiple scaly patches with excoriations are present on the dorsum of the hands, back, and shoulder area. Const General: alert; No acute distress Eyes Conjunctivae: conjunctivae normal Resp Auscultation: clear to auscultation bilaterally Cardio Rate: regular rate Rhythm: regular rhythm GI Inspection: Yes normal to inspection Skin Other: Multiple scaly patches with excoriations on the dorsum of the hands as well as on the back and shoulder area Extrem General: Yes normal to inspection and No edema Coding Level of Care Code Complex visit Add On G2211 Diagnoses Type 2 diabetes mellitus with hyperglycemia E11.65 Essential hypertension I10 Hypertension type: essential hypertension Hypercholesterolemia E78.00 Overweight (BMI 25.0-29.9) E66.3 Fatty liver K76.0 Eczematous dermatitis L30.9 Assessment & Plan Assessment & Plan (1) Type 2 diabetes mellitus with hyperglycemia: Comment: Dr. santacruz ([facility]) Code(s): E11.65 - Type 2 diabetes mellitus with hyperglycemia Category: Medical Plan: Decrease the amount of carbohydrate intake, pasta, bread, rice and potatoes are all sugar and that is aside from all the sweet stuff, remember that fruits are good but they are Sweet also. Hemoglobin A1c goal of less than 6.5 patient is under control diet controlled (2) Hypertension: Code(s): I10 - Essential (primary) hypertension Category: Medical Qualifiers: Hypertension type: essential hypertension Qualified Code(s): I10 - Essential (primary) hypertension Plan: Continue with blood pressure medication. Decrease salt intake and exercise on lisinopril 10 mg once a day (3) Hypercholesterolemia: Code(s): E78.00 - Pure hypercholesterolemia, unspecified Category: Medical Plan: Avoid fried foods, chicken skin, eggs, butter margarine, pastries and meat. Be it pork or beef they have a lot of cholesterol LDL goal of less than 100 and triglyceride of less than 150 patient is not controlled. Patient declines any new medication for now (4) Overweight (BMI 25.0-29.9): Code(s): E66.3 - Overweight Category: Medical Plan: Continue with diet and exercise (5) Fatty liver: Code(s): K76.0 - Fatty (change of) liver, not elsewhere classified Category: Medical Plan: Keep active and low-fat diet, ultrasound of the abdomen is requested (6) Eczematous dermatitis: Code(s): L30.9 - Dermatitis, unspecified Category: Medical Plan: Patient has schedule with Dermatology in 2 months. Meanwhile steroid cream has been tried with minimal effect Plan Plan Patient was informed and verbally consented to the use of an ambient scribe for clinic note documentation during this visit. 1. Contact Dermatitis The patient presents with a chronic, itchy rash on the hands, back, and shoulders, which is suspicious for eczema or a fungal infection. A combination antifungal and steroid cream will be prescribed for trial until the patient's dermatology appointment. The patient was counseled on using thicker emollients, such as Aquaphor, to improve skin hydration. The patient will follow up with dermatology as scheduled on December 20. 2. Hypercholesterolemia The patient's cholesterol remains uncontrolled, with an LDL of 137 mg/dL and triglycerides of 183 mg/dL, exceeding the goals of <100 mg/dL and <150 mg/dL, respectively. The patient has opted to defer pharmacotherapy at this time. The patient will continue with diet and exercise, focusing on a low-fat diet. A follow-up lipid panel will be checked in January or February. 3. Essential Hypertension The patient will continue the current regimen of lisinopril 10 mg once daily. A prescription refill was sent to the patient's preferred pharmacy. 4. Type 2 Diabetes Mellitus The patient's diabetes is well-controlled with diet, as evidenced by a hemoglobin A1c of 5.6%. The patient will continue with diet control and is advis ed to continue yearly diabetic eye exams. 5. Hepatic Steatosis Due to persistently elevated liver enzymes, an ultrasound of the liver will be ordered for further evaluation. Discussion Notes I discussed with the patient that the persistent rash is likely inflammatory, such as eczema, but a fungal component cannot be ruled out without further evaluation. I explained the rationale for prescribing a combination antifungal/steroid cream as a trial and emphasized that oral medications have systemic side effects, which we are trying to avoid. We also discussed the importance of liberal use of thick moisturizers, like Aquaphor, to help restore the skin barrier. We reviewed the recent lab results, noting that the cholesterol levels remain above the target goals. I explained that the elevated LDL cholesterol contributes to plaque buildup in blood vessels, and while medication is an option, the patient preferred to focus on intensive diet and lifestyle changes first. I recommended a liver ultrasound to investigate the cause of the persistently elevated liver enzymes, as this workup has not been completed previously. We confirmed the plan to continue lisinopril for blood pressure, continue diet control for diabetes, and follow up with both dermatology and for lab work in the coming months. Anticipatory guidance was provided regarding the need for a follow-up colonoscopy next year. Patient Instructions - Apply the new combination antifungal/steroid cream to your rash as directed. - Use a thick moisturizing lotion, like Aquaphor, on your skin, especially after you bathe. - Continue taking your lisinopril 10 mg daily for blood pressure. Your refill has been sent to the [facility] in [place]. - To lower your cholesterol, continue to focus on a low-fat diet and regular physical activity. - The imaging department will call you to schedule an ultrasound of your liver. - Keep your appointment with the bank manager on December 20. You can also call their office to ask if they have a cancellation list to possibly be seen sooner. - We will recheck your blood work, including cholesterol, in January or February. - Remember that you are due for a repeat colonoscopy next year. - Continue with your yearly eye exams. Orders: Orders Comprehensive Met. Panel 3 Months E11.65 - Type 2 diabetes mellitus with hyperglycemia US abdomen complete Today K76.0 - Fatty (change of) liver, not elsewhere classified, R79.89 - Other specified abnormal findings of blood chemistry Lipid Panel 3 Months E11.65 - Type 2 diabetes mellitus with hyperglycemia, E78.00 - Pure hypercholesterolemia, unspecified Hemoglobin A1c 3 Months E11.65 - Type 2 diabetes mellitus with hyperglycemia Medications: New clotrimazole-betamethasone 1-0.05 % 1 appl topical BID 60 grams 0RF 2 weeks clotrimazole-betamethasone 1-0.05 % 1 appl topical BID 2 weeks 60 grams 0RF Refilled lisinopril 10 mg PO DAILY 90 tabs 2RF I10 - Essential (primary) hypertension Discontinued betamethasone dipropionate 0.05% Discontinued Reason: Patient Completed Course 1 appl topical BID 14 days PRN 45 grams 0RF skin irritation L23.9 - Allergic contact dermatitis, unspecified cause triamcinolone acetonide 0.5% do not exceed use greater than 14 days Discontinued Reason: Duplicate 1 appl topical BID 14 days 15 grams 0RF
== END 2025-10-14 10:48 | disposition home or self-care (01) ==
LOC: HO.HMCH 08:32
PROVIDERS: PCP Internal Medicine; Visit Provider Internal Medicine
DX: E11.65 Type 2 diabetes mellitus with hyperglycemia (principal); I10 Essential (primary) hypertension; E78.00 Pure hypercholesterolemia, unspecified; E66.3 Overweight; K76.0 Fatty (change of) liver, not elsewhere classified; L30.9 Dermatitis, unspecified